=== PATIENT | male | born 1930 | race Caucasian/White ===

== ENCOUNTER 2017-11-25 15:10 | Inpatient (IN) | payer OTHER ==
[~2017-11-25] VITALS: Ht 167.6 cm; Wt 42.2 kg
--- NOTE | 2017-11-25 15:28 | RAD ---
CT head without intravenous contrast History: Code stroke. Right facial through. Right-sided weakness. Slurred speech. Comparison: None. Technique: Axial images are obtained of the head from the skull base through the vertex without IV contrast. Exposure: One or more of the following individualized dose reduction techniques were utilized for this examination: 1. Automated exposure control 2. Adjustment of the mA and/or kV according to patient size 3. Use of iterative reconstruction technique Findings: There is motion artifact at a few levels which could obscure subtle abnormalities. The ventricles are appropriate in size, shape, and location for the patient's age. No obvious intracranial mass, mass-effect, midline shift, hemorrhage or obvious acute infarction is identified. Basilar cisterns are patent. Mild-moderate nonspecific white matter low-attenuation seen, probably from chronic microvascular ischemic disease. Bone windows demonstrate no acute calvarial abnormality. The visualized paranasal sinuses appear clear. Bilateral cerumen is seen. Impression: 1. Mildly limited by motion. No acute intracranial process. Please note that CT can be relatively insensitive to acute ischemic infarction for up to 24 hours after symptom onset. 2. Mild nonspecific white matter changes, probably from chronic microvascular ischemic disease. 3. Results were telephoned to referring physician, Dr. Cruz, at 1524 hours. Electronically signed by: Derek Espinoza MD (11/25/2017 3:24 PM) [place] [id number]
--- NOTE | 2017-11-25 15:31 | EKG ---
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
[2017-11-25 15:37] LABS: BASO # 0.1 x10^3/uL (0.0-0.2); BASO % 1 % (0-3); EOS # 0.1 x10^3/uL (0.0-0.7); EOS % 3 % (0-3); HEMATOCRIT 31.8 % (39.0-53.0); HEMOGLOBIN 10.3 g/dL (13.0-17.5); LYMPH # 0.8 x10^3/uL (1.0-4.8); LYMPH % 17 % (24-48); MEAN CORPUSCULAR HEMOGLOBIN 28 pg (25-35); MEAN CORPUSCULAR HGB CONC 32 g/dL (31-37); MEAN CORPUSCULAR VOLUME 85 fL (79-100); MONO # 0.3 x10^3/uL (0.0-1.1); MONO % 7 % (0-9); NEUT # 3.4 x10^3uL (1.8-7.7); NEUT % 72 % (31-73); PLATELET COUNT 139 x10^3/uL (140-400); RED BLOOD COUNT 3.73 x10^6/uL (4.30-5.70); RED CELL DISTRIBUTION WIDTH 16.8 % (11.5-14.5); WHITE BLOOD COUNT 4.8 x10^3/uL (4.0-11.0)
[2017-11-25 15:47] LABS: CALCIUM 9.1 mg/dL (8.5-10.1); CREATININE 1.1 mg/dL (0.7-1.3); GFR 63.6; POTASSIUM 4.2 mmol/L (3.5-5.1)
[2017-11-25 15:49] LABS: PROTHROMBIN TIME PATIENT 14.1 SEC (11.7-14.0)
--- NOTE | 2017-11-25 15:50 | RAD ---
EXAM: CHEST 1 VIEW History: Facial weakness, confusion COMPARISON: None available. TECHNIQUE: Single portable radiograph of the chest FINDINGS: The cardiac silhouette is unremarkable. Left-sided cardiac pacer is identified. There is mild prominent appearing bilateral interstitial lung markings. Probable small 5 mm nodule identified in the right lower lobe of the lung. IMPRESSION: 1. Mild prominent appearing bilateral interstitial lung markings likely mild congestive changes or chronic interstitial changes. 2. Probable 5 mm nodule identified in the right lower lobe of the lung. Electronically signed by: Samson Olsen MD (11/25/2017 3:46 PM) [id number]
[2017-11-25 15:53] LABS: ALBUMIN 3.5 g/dL (3.4-5.0); ALBUMIN/GLOBULIN RATIO 1.2 (1.0-1.7); TOTAL BILIRUBIN 0.3 mg/dL (0.2-1.0); TOTAL PROTEIN 6.4 g/dL (6.4-8.2)
--- NOTE | 2017-11-25 16:11 | PHYS DOC ---
Past Medical History Past Medical History: Arrhythmia Past Surgical History: Pacemaker Additional Information: Chewing tobacco Adult General Chief Complaint Chief Complaint: NEURO SYMPTOMS/DEFICITS HPI HPI Patient is a 87 year old male who brought in by EMS because of code stroke. According to patient's son the patient woke up at 9:30 this morning and acting like his usual. At 11 AM he was confused and had slurred speech and not using his right upper and lower extremity well. Patient's son put him to sleep and when he woke up at 1330 he still had the same symptoms and his son called 911 around 1500. Patient is hard of hearing and confused and unable to give his name and follows the commands but unable to give history. Patient's son states he has history of progressive dementia but usually is alert and oriented at least 2 without any focal weakness. Review of Systems Review of Systems Unable to obtain because of hard of hearing and confusion Current Medications Current Medications Allergies Allergies Physical Exam Physical Exam Constitutional: Well nourished, mild distress, non-toxic appearance. [] HENT: Normocephalic, atraumatic Eyes: PERRLA, EOMI, conjunctiva normal, no discharge. [] Neck: Normal range of motion, no tenderness, supple, no stridor. [] Cardiovascular: Irregularly irregular rhythm without tachycardia, no murmur [] Lungs & Thorax: Bilateral breath sounds clear to auscultation [] Abdomen: Bowel sounds normal, soft, no tenderness, no masses, no pulsatile masses. [] Skin: Warm, dry, no erythema, no rash. [] Back: No tenderness, no CVA tenderness. [] Extremities: No tenderness, no cyanosis, no clubbing, ROM intact, no edema. [] Neurologic: Alert and oriented X 1, moves all extremities, denies sensory loss, facial droop and slurred speech with NIHS of 8 Psychologic: Unable to evaluate Current Patient Data Vital Signs Vital Signs Date Time Temp Pulse Resp B/P (MAP) Pulse Ox O2 Delivery O2 Flow Rate FiO2 11/25/17 15:15 64 14 94 11/25/17 15:10 98.9 172/86 (114) Room Air 98.9 Lab Values Laboratory Tests Test 11/25/17 15:18 11/25/17 15:28 Glucose (Fingerstick) 86 mg/dL (70-99) White Blood Count 4.8 x10^3/uL (4.0-11.0) Red Blood Count 3.73 x10^6/uL (4.30-5.70) L Hemoglobin 10.3 g/dL (13.0-17.5) L Hematocrit 31.8 % (39.0-53.0) L Mean Corpuscular Volume 85 fL (79-100) Mean Corpuscular Hemoglobin 28 pg (25-35) Mean Corpuscular Hemoglobin Concent 32 g/dL (31-37) Red Cell Distribution Width 16.8 % (11.5-14.5) H Platelet Count 139 x10^3/uL (140-400) L Neutrophils (%) (Auto) 72 % (31-73) Lymphocytes (%) (Auto) 17 % (24-48) L Monocytes (%) (Auto) 7 % (0-9) Eosinophils (%) (Auto) 3 % (0-3) Basophils (%) (Auto) 1 % (0-3) Neutrophils # (Auto) 3.4 x10^3uL (1.8-7.7) Lymphocytes # (Auto) 0.8 x10^3/uL (1.0-4.8) L Monocytes # (Auto) 0.3 x10^3/uL (0.0-1.1) Eosinophils # (Auto) 0.1 x10^3/uL (0.0-0.7) Basophils # (Auto) 0.1 x10^3/uL (0.0-0.2) Prothrombin Time 14.1 SEC (11.7-14.0) H Prothrombin Time INR 1.1 (0.8-1.1) PTT 29 SEC (24-38) Sodium Level 144 mmol/L (136-145) Potassium Level 4.2 mmol/L (3.5-5.1) Chloride Level 106 mmol/L (98-107) Carbon Dioxide Level 32 mmol/L (21-32) Anion Gap 6 (6-14) Blood Urea Nitrogen 23 mg/dL (8-26) Creatinine 1.1 mg/dL (0.7-1.3) Estimated GFR (Cockcroft-Gault) 63.6 BUN/Creatinine Ratio 21 (6-20) H Glucose Level 90 mg/dL (70-99) Lactic Acid Level 1.2 mmol/L (0.4-2.0) Calcium Level 9.1 mg/dL (8.5-10.1) Total Bilirubin 0.3 mg/dL (0.2-1.0) Aspartate Amino Transferase (AST) 32 U/L (15-37) Alanine Aminotransferase (ALT) 23 U/L (16-63) Alkaline Phosphatase 69 U/L (46-116) Troponin I Quantitative 0.019 ng/mL (0.000-0.055) Total Protein 6.4 g/dL (6.4-8.2) Albumin 3.5 g/dL (3.4-5.0) Albumin/Globulin Ratio 1.2 (1.0-1.7) Laboratory Tests 11/25/17 15:28 Laboratory Tests 11/25/17 15:28 EKG EKG EKG interpreted by me. EKG at 1520 showed afebrile at rate of 73, no acute ST and T-wave abnormalities[] Radiology/Procedures Radiology/Procedures [][address] [id number] IMAGING REPORT Signed PATIENT: SOPHY SANCHEZ ACCOUNT: [id number] : 1930 LOCATION: ER AGE: 87 SEX: M EXAM STATUS: PRE ER ORD. PHYSICIAN: GELY GOODRICH MD REASON: facial weakness, confused PROCEDURE: CHEST AP ONLY EXAM: CHEST 1 VIEW History: Facial weakness, confusion COMPARISON: None available. TECHNIQUE: Single portable radiograph of the chest FINDINGS: The cardiac silhouette is unremarkable. Left-sided cardiac pacer is identified. There is mild prominent appearing bilateral interstitial lung markings. Probable small 5 mm nodule identified in the right lower lobe of the lung. IMPRESSION: 1. Mild prominent appearing bilateral interstitial lung markings likely mild congestive changes or chronic interstitial changes. 2. Probable 5 mm nodule identified in the right lower lobe of the lung. Electronically signed by: Samson Olsen MD (11/25/2017 3:46 PM) [id number] DICTATED and SIGNED BY: SAMSON OLSEN MD DATE: 11/25/[address] [id number] IMAGING REPORT Signed PATIENT: SOPHY SANCHEZ ACCOUNT: [id number] : 1930 LOCATION: ER AGE: 87 SEX: M EXAM STATUS: PRE ER ORD. PHYSICIAN: GELY GOODRICH MD REASON: code stroke, RIGHT SIDE FACIAL DROOP AND WEAKNESS PROCEDURE: CT CODE STROKE HEAD WO CT head without intravenous contrast History: Code stroke. Right facial through. Right-sided weakness. Slurred speech. Comparison: None. Technique: Axial images are obtained of the head from the skull base through the vertex without IV contrast. Exposure: One or more of the following individualized dose reduction techniques were utilized for this examination: 1. Automated exposure control 2. Adjustment of the mA and/or kV according to patient size 3. Use of iterative reconstruction technique Findings: There is motion artifact at a few levels which could obscure subtle abnormalities. The ventricles are appropriate in size, shape, and location for the patient's age. No obvious intracranial mass, mass-effect, midline shift, hemorrhage or obvious acute infarction is identified. Basilar cisterns are patent. Mild-moderate nonspecific white matter low-attenuation seen, probably from chronic microvascular ischemic disease. Bone windows demonstrate no acute calvarial abnormality. The visualized paranasal sinuses appear clear. Bilateral cerumen is seen. Impression: 1. Mildly limited by motion. No acute intracranial process. Please note that CT can be relatively insensitive to acute ischemic infarction for up to 24 hours after symptom onset. 2. Mild nonspecific white matter changes, probably from chronic microvascular ischemic disease. 3. Results were telephoned to referring physician, Dr. Goodrich, at 1524 hours. Electronically signed by: Derek Tavarez MD (11/25/2017 3:24 PM) [facility] DICTATED and SIGNED BY: DEREK TAVAREZ MD DATE: 11/25/17 9929 Course & Med Decision Making Course & Med Decision Making Pertinent Labs and Imaging studies reviewed. (See chart for details) Evaluation of patient in ER showed 87-year-old male patient brought in as a code stroke with starting symptom more than 4 hours prior to ER. Patient did not have extremity weakness but had marked facial droop and intermittent slurred speech and confusion and had NIHS of 8. Patient was not a candidate for TPA because of time of starting symptom was more than [address] Ramos on -call neurologist was consulted at 1548 and recommended to obtain CTA head and neck and agreed with plan of not giving TPA. Dr Uribe accepted admission at 1604 and presented to ER and evaluated the patient. Dragon Disclaimer Dragon Disclaimer This electronic medical record was generated, in whole or in part, using a voice recognition dictation system. Departure Departure Impression: Primary Impression: Acute focal neurological deficit Additional Impressions: Anemia Atrial fibrillation Dementia Disposition: 09 ADMITTED INPATIENT (At 1605) Admitting Physician: Xie. Wiggins Condition: GUARDED Referrals: NO PCP (PCP) Critical Care Time Critical care time was [60] minutes exclusive of procedures. Problem Qualifiers GELY GOODRICH MD Nov 25, 2017 16:11
[2017-11-25 16:13] LABS: BILIRUBIN,URINE NEGATIVE (NEG); CLARITY,URINE CLEAR; COLOR,URINE YELLOW; NITRITE,URINE NEGATIVE (NEG); PROTEIN,URINE NEGATIVE (NEG-TRACE); UROBILINOGEN,URINE 0.2 mg/dL (0.2 mg/dL)
[2017-11-25] MEDS ORDERED: IOHEXOL 300 MG/ML 100ML VIAL. IV ONE (16:15)
[2017-11-25] MEDS ORDERED: CONTRAST GIVEN. MC PRN (16:15)
[2017-11-25 16:29] LABS: BACTERIA,URINE 0 /HPF (0-FEW); HYALINE CASTS, URINE MODERATE /HPF; RBC,URINE 0 /HPF (0-2)
[2017-11-25] MEDS ORDERED: DOCUSATE SODIUM 100 MG CAPSULE. PO PRN (16:45)
[2017-11-25] MEDS ORDERED: ACETAMINOPHEN 325 MG TABLET. PO PRN (16:45)
[2017-11-25] MEDS ORDERED: traMADol 50 MG TABLET PO PRN (16:45)
[2017-11-25] MEDS ORDERED: hydrALAZINE 20 MG/ML VIAL. IVP PRN (16:45)
[2017-11-25] MEDS ORDERED: ONDANSETRON PF 4 MG/2 ML VIAL. IV PRN (16:45)
--- NOTE | 2017-11-25 16:46 | PDOC1 ---
History and Physical Date of Admission Date of Admission 11/25/17 Identification/Chief Complaint Chief Complaint weakness, slurry speech Source Source: Caregiver, Chart review History of Present Illness History of Present Illness 87yo M, has afib but not on any meds , PPM, was sent from home with son JASS, for slurry speech and weakness. As per son, pt became very weak this am about 11am, went back to bed, then woke up with slurry speech and possible rt side weakness. Pt is deaf usually, but talks ok and walks independently. Pt seen in ER, CALm, communicate with writing with son, but not really able to follow any commands as i asked him, including smile , squeeze my hands. denies fever, chills, sob , chest pain as per son. son said his slurry speech still bad, but rt hand weakness is better. pt not even on ASA not sure why, as per son he had gib from diverticulitis. head CT neg. Past Medical History Past Medical History ppm, afib Past Surgical History Past Surgical History: No pertinent history Family History Family History: Hypertension Social History Smoke: No ALCOHOL: none Drugs: None Current Problem List Problem List Problems Medical Problems: (1) Acute focal neurological deficit Status: Acute Current Medications Current Medications Current Medications Medications (Trade) Dose Ordered Sig/All Start Time Stop Time Status Last Admin Dose Admin Info (CONTRAST GIVEN -- Rx MONITORING) 1 each PRN DAILY PRN 11/25/17 16:15 11/27/17 16:14 Iohexol (Omnipaque 300 Mg/ml) 75 ml 1X ONCE 11/25/17 16:15 11/25/17 16:16 DC Allergies Allergies Allergies Coded Allergies Type Severity Reaction Last Updated Verified No Known Drug Allergies 11/25/17 No ROS Review of System CONSTITUTIONAL: No fever or chills EYES: No recent changes SKIN: No rash or itching CARDIOVASCULAR: No chest pain, syncope, palpitations, or edema RESPIRATORY: No SOB or cough GASTROINTESTINAL: No nausea, vomiting or abdominal pain NEUROLOGICAL: No headaches or weakness ENDOCRINE: No cold or heat intolerance GENITOURINARY: No urgency or frequency of urination MUSCULOSKELETAL: No back pain or joint pain LYMPHATICS: No enlarged lymph nodes PSYCHIATRIC: No anxiety or depression Physical Exam Physical Exam GEN.: No apparent distress. Alert and oriented x0, slurry speech, not follow commands, able to use rt hand to hold the paper board. HEENT: Head is normocephalic, atraumatic NECK: Supple. LUNGS: Clear to auscultation. HEART: RRR, S1, S2 present. Peripheral pulses intact ABDOMEN: Soft, nontender. Positive bowel sounds. EXTREMITIES: Without any cyanosis. NEUROLOGIC: Normal speech, normal tone PSYCHIATRIC: Normal affect, normal mood. SKIN: No ulcerations Vitals Vitals Vital Signs Date Time Temp Pulse Resp B/P (MAP) Pulse Ox O2 Delivery O2 Flow Rate FiO2 11/25/17 15:10 98.9 62 14 172/86 (114) 99 Room Air 98.9 Labs Labs Laboratory Tests Test 11/25/17 15:18 11/25/17 15:28 Glucose (Fingerstick) 86 mg/dL (70-99) White Blood Count 4.8 x10^3/uL (4.0-11.0) Red Blood Count 3.73 x10^6/uL (4.30-5.70) Hemoglobin 10.3 g/dL (13.0-17.5) Hematocrit 31.8 % (39.0-53.0) Mean Corpuscular Volume 85 fL (79-100) Mean Corpuscular Hemoglobin 28 pg (25-35) Mean Corpuscular Hemoglobin Concent 32 g/dL (31-37) Red Cell Distribution Width 16.8 % (11.5-14.5) Platelet Count 139 x10^3/uL (140-400) Neutrophils (%) (Auto) 72 % (31-73) Lymphocytes (%) (Auto) 17 % (24-48) Monocytes (%) (Auto) 7 % (0-9) Eosinophils (%) (Auto) 3 % (0-3) Basophils (%) (Auto) 1 % (0-3) Neutrophils # (Auto) 3.4 x10^3uL (1.8-7.7) Lymphocytes # (Auto) 0.8 x10^3/uL (1.0-4.8) Monocytes # (Auto) 0.3 x10^3/uL (0.0-1.1) Eosinophils # (Auto) 0.1 x10^3/uL (0.0-0.7) Basophils # (Auto) 0.1 x10^3/uL (0.0-0.2) Prothrombin Time 14.1 SEC (11.7-14.0) Prothromb Time International Ratio 1.1 (0.8-1.1) Activated Partial Thromboplast Time 29 SEC (24-38) Sodium Level 144 mmol/L (136-145) Potassium Level 4.2 mmol/L (3.5-5.1) Chloride Level 106 mmol/L (98-107) Carbon Dioxide Level 32 mmol/L (21-32) Anion Gap 6 (6-14) Blood Urea Nitrogen 23 mg/dL (8-26) Creatinine 1.1 mg/dL (0.7-1.3) Estimated GFR (Cockcroft-Gault) 63.6 BUN/Creatinine Ratio 21 (6-20) Glucose Level 90 mg/dL (70-99) Lactic Acid Level 1.2 mmol/L (0.4-2.0) Calcium Level 9.1 mg/dL (8.5-10.1) Total Bilirubin 0.3 mg/dL (0.2-1.0) Aspartate Amino Transf (AST/SGOT) 32 U/L (15-37) Alanine Aminotransferase (ALT/SGPT) 23 U/L (16-63) Alkaline Phosphatase 69 U/L (46-116) Troponin I Quantitative 0.019 ng/mL (0.000-0.055) Total Protein 6.4 g/dL (6.4-8.2) Albumin 3.5 g/dL (3.4-5.0) Albumin/Globulin Ratio 1.2 (1.0-1.7) Laboratory Tests Test 11/25/17 15:18 11/25/17 15:28 Glucose (Fingerstick) 86 mg/dL (70-99) White Blood Count 4.8 x10^3/uL (4.0-11.0) Red Blood Count 3.73 x10^6/uL (4.30-5.70) Hemoglobin 10.3 g/dL (13.0-17.5) Hematocrit 31.8 % (39.0-53.0) Mean Corpuscular Volume 85 fL (79-100) Mean Corpuscular Hemoglobin 28 pg (25-35) Mean Corpuscular Hemoglobin Concent 32 g/dL (31-37) Red Cell Distribution Width 16.8 % (11.5-14.5) Platelet Count 139 x10^3/uL (140-400) Neutrophils (%) (Auto) 72 % (31-73) Lymphocytes (%) (Auto) 17 % (24-48) Monocytes (%) (Auto) 7 % (0-9) Eosinophils (%) (Auto) 3 % (0-3) Basophils (%) (Auto) 1 % (0-3) Neutrophils # (Auto) 3.4 x10^3uL (1.8-7.7) Lymphocytes # (Auto) 0.8 x10^3/uL (1.0-4.8) Monocytes # (Auto) 0.3 x10^3/uL (0.0-1.1) Eosinophils # (Auto) 0.1 x10^3/uL (0.0-0.7) Basophils # (Auto) 0.1 x10^3/uL (0.0-0.2) Prothrombin Time 14.1 SEC (11.7-14.0) Prothromb Time International Ratio 1.1 (0.8-1.1) Activated Partial Thromboplast Time 29 SEC (24-38) Sodium Level 144 mmol/L (136-145) Potassium Level 4.2 mmol/L (3.5-5.1) Chloride Level 106 mmol/L (98-107) Carbon Dioxide Level 32 mmol/L (21-32) Anion Gap 6 (6-14) Blood Urea Nitrogen 23 mg/dL (8-26) Creatinine 1.1 mg/dL (0.7-1.3) Estimated GFR (Cockcroft-Gault) 63.6 BUN/Creatinine Ratio 21 (6-20) Glucose Level 90 mg/dL (70-99) Lactic Acid Level 1.2 mmol/L (0.4-2.0) Calcium Level 9.1 mg/dL (8.5-10.1) Total Bilirubin 0.3 mg/dL (0.2-1.0) Aspartate Amino Transf (AST/SGOT) 32 U/L (15-37) Alanine Aminotransferase (ALT/SGPT) 23 U/L (16-63) Alkaline Phosphatase 69 U/L (46-116) Troponin I Quantitative 0.019 ng/mL (0.000-0.055) Total Protein 6.4 g/dL (6.4-8.2) Albumin 3.5 g/dL (3.4-5.0) Albumin/Globulin Ratio 1.2 (1.0-1.7) VTE Prophylaxis Ordered VTE Prophylaxis Devices: Yes VTE Pharmacological Prophylaxi: Yes Assessment/Plan Assessment/Plan slurry speech, rt side weakness, 2/2 stroke? baseline mild dementia bl hearing loss PPM with afib wo ac h/o diverticulitis with gib normacytic anemia thrombocytopenia plan: fu with neuro CT head neg, cta pending check brain MRI, ECHO, Carotid US CHECK tsh, lipid panel, vitb12, vitD swallow eval npo, ivf dvt, gi ppx ASA [place] neurocheck q4h PTOT talked to son about possible SW, REHAB, PEG if not able to eat DAWSON LONG MD Nov 25, 2017 16:46
--- NOTE | 2017-11-25 16:55 | RAD ---
PQRS Compliance Statement: One or more of the following individualized dose reduction techniques were utilized for this examination: 1. Automated exposure control 2. Adjustment of the mA and/or kV according to patient size 3. Use of iterative reconstruction technique CTA head and neck with contrast 11/25/2017 4:20 PM INDICATION: Code stroke. Slurred speech and facial droop. Focal weakness. COMPARISON: CT head 11/25/2017 TECHNIQUE: Multiple axial CT images of the head were obtained without intravenous contrast. Multiple axial CT images of the head and neck were obtained after the intravenous administration of 75 mL Omnipaque 300. Coronal and sagittal reformats are provided. Maximum intensity projection images of the intracranial and cervical vasculature are provided. FINDINGS: Nonvascular findings: Supervisor [employer] Removal image reveals no significant abnormality. Scalp and calvaria are intact. The ventricles, sulci and basal cisterns are normal in appearance. There is normal arceo-white matter differentiation. Few scattered foci of hypoattenuation in the periventricular and subcortical white matter are suggestive of chronic small vessel ischemic changes. There is no hydrocephalus. There is no acute intracranial hemorrhage. There is no mass, mass effect or midline shift. Posterior fossa is normal in appearance. Sella and suprasellar cistern appear normal. Orbits are normal in appearance with exception of bilateral lens replacement. Paranasal sinuses are well aerated. Mastoid air cells are well aerated. There are no suspicious enhancing intracranial lesions. Nasopharynx, oropharynx and hypopharynx appear normal. Glottic structures appear intact. Laryngeal cartilages are intact. Thyroid gland is normal in appearance. There are no pathologically enlarged cervical lymph nodes. Parotid glands and submandibular glands appear intact. Auxiliary Power Equipment Operator space and parapharyngeal spaces appear intact. There is moderate centrilobular pulmonary emphysema. There is a 3 mm solid noncalcified pulmonary nodule in the left upper lobe. Subpleural nodular densities are identified along the right lung apex which may represent scarring. For example, there is a 5 mm spiculated subpleural nodule (series 3, image 75). There is mild cervical spondylosis, most prominent at C4-C5 with minimal retrolisthesis of C4 on C5. Vascular findings: Visualized portions of the pulmonary arteries are patent. Ascending thoracic aorta is normal in caliber. Origin of the brachiocephalic vessels appear widely patent. Normal three-vessel aortic arch is visualized. Origin of the right common carotid artery is normal. Right common carotid artery is normal in course and caliber. There is minor atherosclerotic calcination of the right carotid bifurcation without significant stenosis of the proximal right internal carotid artery or external carotid artery. Left common carotid artery is normal in course and caliber. 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 Origin of the external carotid artery is widely patent. Right vertebral artery is normal in course and caliber with moderate stenosis at the origin. Left vertebral artery is normal in course and caliber an patent at the origin. Intracranial segments of internal carotid arteries are normal in course and caliber with exception of mild irregularity involving the cavernous segments, likely secondary to atheromatous plaque. Middle cerebral arteries are normal in course and caliber with patent sylvian branches. A1 segments are present and normal in appearance. Anterior cerebral arteries are normal in course and caliber. Left vertebral artery is dominant. Right vertebral artery terminates in the right posterior inferior cerebellar artery territory. Vertebral basilar junction is normal. Basilar artery is normal in course and caliber. Anterior inferior cerebellar arteries and superior cerebellar arteries are normal. P1 segments of the posterior cerebral arteries are patent. Posterior cerebral arteries are normal in course and caliber. 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 Opacified portions of the deep venous sinuses appear patent including the superior sagittal sinus. IMPRESSION: 1. No acute intracranial hemorrhage. 2. 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 There is no significant right carotid stenosis. There is moderate stenosis of the origin of the right vertebral artery. Right vertebral artery terminates in the posterior inferior cerebellar artery distribution. 3. 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 4. PQRS statement: Carotid stenosis calculations are performed utilizing NASCET Criteria. 5. 3 mm solid noncalcified pulmonary nodule in the left upper lobe. 5 mm solid noncalcified spiculated nodule in the right upper lobe along the right lung apex. A six-month follow-up CT chest may be of benefit. Electronically signed by: Rachna Avendaño MD (11/25/2017 4:51 PM) [id number]
[2017-11-25] MEDS: ENOXAPARIN 40 MG/0.4 ML SYRINGE. SQ SCH (17:00)
[2017-11-25 17:15] VITALS: BP 199/91
[2017-11-25 18:16] VITALS: BP 179/93
[2017-11-25] MEDS: IV NORMAL SALINE 1000ML BAG 1,000 ML IV SCH (19:00)
[2017-11-25] MEDS: MORPHINE SULFATE 2 MG/ML DISP.SYRIN. IV PRN (19:14)
[2017-11-25 20:00] VITALS: BP 173/97
[2017-11-25] MEDS ORDERED: HALOPERIDOL LACTATE 5 MG/ML VIAL. IVP PRN (21:30)
[2017-11-26] VITALS (7 sets, daily range): BP systolic 100–140; BP diastolic 49–71
[2017-11-26 05:15] LABS: BASO % 1 % (0-3); EOS % 0 % (0-3); HEMATOCRIT 34.3 % (39.0-53.0); HEMOGLOBIN 11.1 g/dL (13.0-17.5); LYMPH # 0.6 x10^3/uL (1.0-4.8); LYMPH % 7 % (24-48); MEAN CORPUSCULAR HEMOGLOBIN 28 pg (25-35); MEAN CORPUSCULAR HGB CONC 32 g/dL (31-37); MEAN CORPUSCULAR VOLUME 85 fL (79-100); MONO # 0.7 x10^3/uL (0.0-1.1); MONO % 8 % (0-9); NEUT # 7.5 x10^3uL (1.8-7.7); NEUT % 84 % (31-73); PLATELET COUNT 137 x10^3/uL (140-400); RED BLOOD COUNT 4.03 x10^6/uL (4.30-5.70); RED CELL DISTRIBUTION WIDTH 16.3 % (11.5-14.5); WHITE BLOOD COUNT 8.9 x10^3/uL (4.0-11.0)
[2017-11-26 05:18] LABS: CREATININE 1.1 mg/dL (0.7-1.3); GFR 63.6; POTASSIUM 3.7 mmol/L (3.5-5.1)
[2017-11-26 05:27] LABS: CHOLESTEROL/HDL RATIO 2.7
[2017-11-26] MEDS: IV NORMAL SALINE 1000ML BAG 1,000 ML IV SCH (05:56)
[2017-11-26] MEDS: ASPIRIN 300 MG SUPP.RECT PR SCH ×2 (09:44→09:49)
[2017-11-26 10:28] LABS: FREE T4 1.36 ng/dL (0.76-1.46)
--- NOTE | 2017-11-26 13:17 | PDOC ---
PROGRESS NOTES Chief Complaint Chief Complaint slurry speech, rt side weakness, 2/2 stroke? baseline mild dementia bl hearing loss PPM with afib wo ac h/o diverticulitis with gib normacytic anemia thrombocytopenia AMS, metabolic encephalopathy with ativan in hosp bl lung 3-5mm nodule with remote smoking history small brain aneurysm plan: fu with neuro CT head neg, cta check brain MRI cannot be done since PPM, repeat head CT, ECHO pending CHECK tsh, lipid panel, vitb12, vitD swallow eval when more awake npo, ivf change to PPM dvt, gi ppx ASA NV, zocor if can swallow neurocheck q4h PTOT dc ativan,cont haldol prn, sitter as needed, try to avoid sedative meds if not too agitated. talked to son about possible SW, REHAB, PEG if not able to eat neurosx consult, likely no intervention told son to fu with PCP for the small lung nodules son will talk to family regarding code status. History of Present Illness History of Present Illness ROS: no fever, chills, sob or chest pain son said pt able to move all ext , but agitated overnight, got ativan 0.5x2, now unresponsive i told him possible aspiration if not wake up soon or able to swallow Vitals Vitals Vital Signs Date Time Temp Pulse Resp B/P (MAP) Pulse Ox O2 Delivery O2 Flow Rate FiO2 11/26/17 12:30 99.0 68 20 100/52 (68) 93 Room Air 99.0 11/25/17 20:00 98.0 Physical Exam Physical Exam unresponsive , post ativan x2 overnight Heart: Regular rate, Normal S1, Normal S2 Lungs: Clear Abdomen: Normal bowel sounds, Soft Extremities: No clubbing, No cyanosis Skin: No rashes Labs LABS Laboratory Tests Test 11/25/17 15:18 11/25/17 15:28 11/25/17 16:01 11/26/17 04:00 Glucose (Fingerstick) 86 mg/dL (70-99) White Blood Count 4.8 x10^3/uL (4.0-11.0) 8.9 x10^3/uL (4.0-11.0) Red Blood Count 3.73 x10^6/uL (4.30-5.70) 4.03 x10^6/uL (4.30-5.70) Hemoglobin 10.3 g/dL (13.0-17.5) 11.1 g/dL (13.0-17.5) Hematocrit 31.8 % (39.0-53.0) 34.3 % (39.0-53.0) Mean Corpuscular Volume 85 fL (79-100) 85 fL (79-100) Mean Corpuscular Hemoglobin 28 pg (25-35) 28 pg (25-35) Mean Corpuscular Hemoglobin Concent 32 g/dL (31-37) 32 g/dL (31-37) Red Cell Distribution Width 16.8 % (11.5-14.5) 16.3 % (11.5-14.5) Platelet Count 139 x10^3/uL (140-400) 137 x10^3/uL (140-400) Neutrophils (%) (Auto) 72 % (31-73) 84 % (31-73) Lymphocytes (%) (Auto) 17 % (24-48) 7 % (24-48) Monocytes (%) (Auto) 7 % (0-9) 8 % (0-9) Eosinophils (%) (Auto) 3 % (0-3) 0 % (0-3) Basophils (%) (Auto) 1 % (0-3) 1 % (0-3) Neutrophils # (Auto) 3.4 x10^3uL (1.8-7.7) 7.5 x10^3uL (1.8-7.7) Lymphocytes # (Auto) 0.8 x10^3/uL (1.0-4.8) 0.6 x10^3/uL (1.0-4.8) Monocytes # (Auto) 0.3 x10^3/uL (0.0-1.1) 0.7 x10^3/uL (0.0-1.1) Eosinophils # (Auto) 0.1 x10^3/uL (0.0-0.7) 0.0 x10^3/uL (0.0-0.7) Basophils # (Auto) 0.1 x10^3/uL (0.0-0.2) 0.0 x10^3/uL (0.0-0.2) Prothrombin Time 14.1 SEC (11.7-14.0) Prothromb Time International Ratio 1.1 (0.8-1.1) Activated Partial Thromboplast Time 29 SEC (24-38) Sodium Level 144 mmol/L (136-145) 144 mmol/L (136-145) Potassium Level 4.2 mmol/L (3.5-5.1) 3.7 mmol/L (3.5-5.1) Chloride Level 106 mmol/L (98-107) 106 mmol/L (98-107) Carbon Dioxide Level 32 mmol/L (21-32) 30 mmol/L (21-32) Anion Gap 6 (6-14) 8 (6-14) Blood Urea Nitrogen 23 mg/dL (8-26) 20 mg/dL (8-26) Creatinine 1.1 mg/dL (0.7-1.3) 1.1 mg/dL (0.7-1.3) Estimated GFR (Cockcroft-Gault) 63.6 63.6 BUN/Creatinine Ratio 21 (6-20) Glucose Level 90 mg/dL (70-99) 91 mg/dL (70-99) Lactic Acid Level 1.2 mmol/L (0.4-2.0) Calcium Level 9.1 mg/dL (8.5-10.1) 9.0 mg/dL (8.5-10.1) Total Bilirubin 0.3 mg/dL (0.2-1.0) Aspartate Amino Transf (AST/SGOT) 32 U/L (15-37) Alanine Aminotransferase (ALT/SGPT) 23 U/L (16-63) Alkaline Phosphatase 69 U/L (46-116) Troponin I Quantitative 0.019 ng/mL (0.000-0.055) Total Protein 6.4 g/dL (6.4-8.2) Albumin 3.5 g/dL (3.4-5.0) Albumin/Globulin Ratio 1.2 (1.0-1.7) Urine Collection Type Unknown Urine Color Yellow Urine Clarity Clear Urine pH 7.0 Urine Specific Christine 1.010 Urine Protein Negative mg/dL (NEG-TRACE) Urine Glucose (UA) Negative mg/dL (NEG) Urine Ketones (Stick) Negative mg/dL (NEG) Urine Blood Negative (NEG) Urine Nitrite Negative (NEG) Urine Bilirubin Negative (NEG) Urine Urobilinogen Dipstick 0.2 mg/dL (0.2 mg/dL) Urine Leukocyte Esterase Trace (NEG) Urine RBC 0 /HPF (0-2) Urine WBC 1-4 /HPF (0-4) Urine Bacteria 0 /HPF (0-FEW) Urine Hyaline Casts Moderate /HPF Urine Mucus Slight /LPF Triglycerides Level 54 mg/dL (0-150) Cholesterol Level 158 mg/dL (0-200) LDL Cholesterol, Calculated 88 mg/dL (0-100) VLDL Cholesterol, Calculated 11 mg/dL (0-40) Non-HDL Cholesterol Calculated 99 mg/dL (0-129) HDL Cholesterol 59 mg/dL (40-60) Cholesterol/HDL Ratio 2.7 Thyroid Stimulating Hormone (TSH) 6.212 uIU/mL (0.358-3.74) Free Thyroxine 1.36 ng/dL (0.76-1.46) Free Triiodothyronine (T3) pg/mL 2.78 pg/mL (2.18-3.98) Assessment and Plan Assessmemt and Plan Problems Medical Problems: (1) Acute focal neurological deficit Status: Acute (2) Anemia Status: Acute (3) Atrial fibrillation Status: Acute (4) Dementia Status: Acute Comment Review of Relevant I have reviewed the following items kendell (where applicable) has been applied. Labs Laboratory Tests Test 11/25/17 15:18 11/25/17 15:28 11/25/17 16:01 11/26/17 04:00 Glucose (Fingerstick) 86 mg/dL (70-99) White Blood Count 4.8 x10^3/uL (4.0-11.0) 8.9 x10^3/uL (4.0-11.0) Red Blood Count 3.73 x10^6/uL (4.30-5.70) 4.03 x10^6/uL (4.30-5.70) Hemoglobin 10.3 g/dL (13.0-17.5) 11.1 g/dL (13.0-17.5) Hematocrit 31.8 % (39.0-53.0) 34.3 % (39.0-53.0) Mean Corpuscular Volume 85 fL (79-100) 85 fL (79-100) Mean Corpuscular Hemoglobin 28 pg (25-35) 28 pg (25-35) Mean Corpuscular Hemoglobin Concent 32 g/dL (31-37) 32 g/dL (31-37) Red Cell Distribution Width 16.8 % (11.5-14.5) 16.3 % (11.5-14.5) Platelet Count 139 x10^3/uL (140-400) 137 x10^3/uL (140-400) Neutrophils (%) (Auto) 72 % (31-73) 84 % (31-73) Lymphocytes (%) (Auto) 17 % (24-48) 7 % (24-48) Monocytes (%) (Auto) 7 % (0-9) 8 % (0-9) Eosinophils (%) (Auto) 3 % (0-3) 0 % (0-3) Basophils (%) (Auto) 1 % (0-3) 1 % (0-3) Neutrophils # (Auto) 3.4 x10^3uL (1.8-7.7) 7.5 x10^3uL (1.8-7.7) Lymphocytes # (Auto) 0.8 x10^3/uL (1.0-4.8) 0.6 x10^3/uL (1.0-4.8) Monocytes # (Auto) 0.3 x10^3/uL (0.0-1.1) 0.7 x10^3/uL (0.0-1.1) Eosinophils # (Auto) 0.1 x10^3/uL (0.0-0.7) 0.0 x10^3/uL (0.0-0.7) Basophils # (Auto) 0.1 x10^3/uL (0.0-0.2) 0.0 x10^3/uL (0.0-0.2) Prothrombin Time 14.1 SEC (11.7-14.0) Prothromb Time International Ratio 1.1 (0.8-1.1) Activated Partial Thromboplast Time 29 SEC (24-38) Sodium Level 144 mmol/L (136-145) 144 mmol/L (136-145) Potassium Level 4.2 mmol/L (3.5-5.1) 3.7 mmol/L (3.5-5.1) Chloride Level 106 mmol/L (98-107) 106 mmol/L (98-107) Carbon Dioxide Level 32 mmol/L (21-32) 30 mmol/L (21-32) Anion Gap 6 (6-14) 8 (6-14) Blood Urea Nitrogen 23 mg/dL (8-26) 20 mg/dL (8-26) Creatinine 1.1 mg/dL (0.7-1.3) 1.1 mg/dL (0.7-1.3) Estimated GFR (Cockcroft-Gault) 63.6 63.6 BUN/Creatinine Ratio 21 (6-20) Glucose Level 90 mg/dL (70-99) 91 mg/dL (70-99) Lactic Acid Level 1.2 mmol/L (0.4-2.0) Calcium Level 9.1 mg/dL (8.5-10.1) 9.0 mg/dL (8.5-10.1) Total Bilirubin 0.3 mg/dL (0.2-1.0) Aspartate Amino Transf (AST/SGOT) 32 U/L (15-37) Alanine Aminotransferase (ALT/SGPT) 23 U/L (16-63) Alkaline Phosphatase 69 U/L (46-116) Troponin I Quantitative 0.019 ng/mL (0.000-0.055) Total Protein 6.4 g/dL (6.4-8.2) Albumin 3.5 g/dL (3.4-5.0) Albumin/Globulin Ratio 1.2 (1.0-1.7) Urine Collection Type Unknown Urine Color Yellow Urine Clarity Clear Urine pH 7.0 Urine Specific Christine 1.010 Urine Protein Negative mg/dL (NEG-TRACE) Urine Glucose (UA) Negative mg/dL (NEG) Urine Ketones (Stick) Negative mg/dL (NEG) Urine Blood Negative (NEG) Urine Nitrite Negative (NEG) Urine Bilirubin Negative (NEG) Urine Urobilinogen Dipstick 0.2 mg/dL (0.2 mg/dL) Urine Leukocyte Esterase Trace (NEG) Urine RBC 0 /HPF (0-2) Urine WBC 1-4 /HPF (0-4) Urine Bacteria 0 /HPF (0-FEW) Urine Hyaline Casts Moderate /HPF Urine Mucus Slight /LPF Triglycerides Level 54 mg/dL (0-150) Cholesterol Level 158 mg/dL (0-200) LDL Cholesterol, Calculated 88 mg/dL (0-100) VLDL Cholesterol, Calculated 11 mg/dL (0-40) Non-HDL Cholesterol Calculated 99 mg/dL (0-129) HDL Cholesterol 59 mg/dL (40-60) Cholesterol/HDL Ratio 2.7 Thyroid Stimulating Hormone (TSH) 6.212 uIU/mL (0.358-3.74) Free Thyroxine 1.36 ng/dL (0.76-1.46) Free Triiodothyronine (T3) pg/mL 2.78 pg/mL (2.18-3.98) Laboratory Tests Test 11/25/17 15:18 11/25/17 15:28 11/25/17 16:01 11/26/17 04:00 Glucose (Fingerstick) 86 mg/dL (70-99) White Blood Count 4.8 x10^3/uL (4.0-11.0) 8.9 x10^3/uL (4.0-11.0) Red Blood Count 3.73 x10^6/uL (4.30-5.70) 4.03 x10^6/uL (4.30-5.70) Hemoglobin 10.3 g/dL (13.0-17.5) 11.1 g/dL (13.0-17.5) Hematocrit 31.8 % (39.0-53.0) 34.3 % (39.0-53.0) Mean Corpuscular Volume 85 fL (79-100) 85 fL (79-100) Mean Corpuscular Hemoglobin 28 pg (25-35) 28 pg (25-35) Mean Corpuscular Hemoglobin Concent 32 g/dL (31-37) 32 g/dL (31-37) Red Cell Distribution Width 16.8 % (11.5-14.5) 16.3 % (11.5-14.5) Platelet Count 139 x10^3/uL (140-400) 137 x10^3/uL (140-400) Neutrophils (%) (Auto) 72 % (31-73) 84 % (31-73) Lymphocytes (%) (Auto) 17 % (24-48) 7 % (24-48) Monocytes (%) (Auto) 7 % (0-9) 8 % (0-9) Eosinophils (%) (Auto) 3 % (0-3) 0 % (0-3) Basophils (%) (Auto) 1 % (0-3) 1 % (0-3) Neutrophils # (Auto) 3.4 x10^3uL (1.8-7.7) 7.5 x10^3uL (1.8-7.7) Lymphocytes # (Auto) 0.8 x10^3/uL (1.0-4.8) 0.6 x10^3/uL (1.0-4.8) Monocytes # (Auto) 0.3 x10^3/uL (0.0-1.1) 0.7 x10^3/uL (0.0-1.1) Eosinophils # (Auto) 0.1 x10^3/uL (0.0-0.7) 0.0 x10^3/uL (0.0-0.7) Basophils # (Auto) 0.1 x10^3/uL (0.0-0.2) 0.0 x10^3/uL (0.0-0.2) Prothrombin Time 14.1 SEC (11.7-14.0) Prothromb Time International Ratio 1.1 (0.8-1.1) Activated Partial Thromboplast Time 29 SEC (24-38) Sodium Level 144 mmol/L (136-145) 144 mmol/L (136-145) Potassium Level 4.2 mmol/L (3.5-5.1) 3.7 mmol/L (3.5-5.1) Chloride Level 106 mmol/L (98-107) 106 mmol/L (98-107) Carbon Dioxide Level 32 mmol/L (21-32) 30 mmol/L (21-32) Anion Gap 6 (6-14) 8 (6-14) Blood Urea Nitrogen 23 mg/dL (8-26) 20 mg/dL (8-26) Creatinine 1.1 mg/dL (0.7-1.3) 1.1 mg/dL (0.7-1.3) Estimated GFR (Cockcroft-Gault) 63.6 63.6 BUN/Creatinine Ratio 21 (6-20) Glucose Level 90 mg/dL (70-99) 91 mg/dL (70-99) Lactic Acid Level 1.2 mmol/L (0.4-2.0) Calcium Level 9.1 mg/dL (8.5-10.1) 9.0 mg/dL (8.5-10.1) Total Bilirubin 0.3 mg/dL (0.2-1.0) Aspartate Amino Transf (AST/SGOT) 32 U/L (15-37) Alanine Aminotransferase (ALT/SGPT) 23 U/L (16-63) Alkaline Phosphatase 69 U/L (46-116) Troponin I Quantitative 0.019 ng/mL (0.000-0.055) Total Protein 6.4 g/dL (6.4-8.2) Albumin 3.5 g/dL (3.4-5.0) Albumin/Globulin Ratio 1.2 (1.0-1.7) Urine Collection Type Unknown Urine Color Yellow Urine Clarity Clear Urine pH 7.0 Urine Specific Christine 1.010 Urine Protein Negative mg/dL (NEG-TRACE) Urine Glucose (UA) Negative mg/dL (NEG) Urine Ketones (Stick) Negative mg/dL (NEG) Urine Blood Negative (NEG) Urine Nitrite Negative (NEG) Urine Bilirubin Negative (NEG) Urine Urobilinogen Dipstick 0.2 mg/dL (0.2 mg/dL) Urine Leukocyte Esterase Trace (NEG) Urine RBC 0 /HPF (0-2) Urine WBC 1-4 /HPF (0-4) Urine Bacteria 0 /HPF (0-FEW) Urine Hyaline Casts Moderate /HPF Urine Mucus Slight /LPF Triglycerides Level 54 mg/dL (0-150) Cholesterol Level 158 mg/dL (0-200) LDL Cholesterol, Calculated 88 mg/dL (0-100) VLDL Cholesterol, Calculated 11 mg/dL (0-40) Non-HDL Cholesterol Calculated 99 mg/dL (0-129) HDL Cholesterol 59 mg/dL (40-60) Cholesterol/HDL Ratio 2.7 Thyroid Stimulating Hormone (TSH) 6.212 uIU/mL (0.358-3.74) Free Thyroxine 1.36 ng/dL (0.76-1.46) Free Triiodothyronine (T3) pg/mL 2.78 pg/mL (2.18-3.98) Medications Current Medications Iohexol (Omnipaque 300 Mg/ml) 75 ml 1X ONCE IV Last administered on 11/25/17at 16:31; Start 11/25/17 at 16:15; Stop 11/25/17 at 16:16; Status DC Info (CONTRAST GIVEN -- Rx MONITORING) 1 each PRN DAILY PRN MC SEE COMMENTS; Start 11/25/17 at 16:15; Stop 11/27/17 at 16:14 Acetaminophen (Tylenol) 650 mg PRN Q6HRS PRN PO FEVER; Start 11/25/17 at 16:45 Ondansetron HCl (Zofran) 4 mg PRN Q6HRS PRN IV NAUSEA/VOMITING 1ST CHOICE; Start 11/25/17 at 16:45 Morphine Sulfate (Morphine Sulfate) 2 mg PRN Q2HR PRN IV MODERATE TO SEVERE PAIN Last administered on 11/25/17at 19:14; Start 11/25/17 at 16:45 Tramadol HCl (Ultram) 50 mg PRN Q6HRS PRN PO MILD TO MODERATE PAIN; Start 11/25 at 16:45 Hydralazine HCl (Apresoline Inj) 10 mg PRN Q4HRS PRN IVP ELEVATED BP, SEE COMMENTS; Start 11/25/17 at 16:45 Docusate Sodium (Colace) 100 mg PRN DAILY PRN PO HARD STOOLS; Start 11/25/17 at 16:45 Enoxaparin Sodium (Lovenox 40mg Syringe) 40 mg Q24H SQ ; Start 11/25/17 at 17:00 Aspirin (Aspirin) 300 mg DAILY NV Last administered on 11/26/17at 09:49; Start 11/25/17 at 17:00 Sodium Chloride 1,000 ml @ 75 mls/hr [id number] IV Last administered on at 05:56; Start 11/25/17 at 16:45 Lorazepam (Ativan) 0.5 mg PRN Q4HRS PRN IV ANXIETY / AGITATION Last administered on 11/26/17at 00:16; Start 11/25/17 at 21:30; Stop 11/26/17 at 09:24 ; Status DC Haloperidol Lactate (Haldol Inj) 1 mg PRN Q4HRS PRN IVP AGITATION; Start at 21:30 Lorazepam (Ativan) 0.5 mg PRN DAILY PRN IV ANXIETY / AGITATION; Start 11/26/17 at 09:30 Vitals/I & O Vital Sign - Last 24 Hours 11/25/17 11/25/17 11/25/17 11/25/17 15:10 15:15 15:30 16:00 Temp 98.9 98.9 Pulse 62 64 65 76 Resp 14 14 14 20 B/P (MAP) 172/86 (114) Pulse Ox 99 94 95 99 O2 Delivery Room Air 11/25/17 11/25/17 11/25/17 11/25/17 16:15 16:30 16:45 17:15 Temp 98.3 98.3 Pulse 70 70 88 83 Resp 14 12 12 20 B/P (MAP) 199/91 (127) Pulse Ox 97 100 100 99 O2 Delivery Room Air 11/25/17 11/25/17 11/25/17 11/25/17 18:16 19:14 19:49 20:00 Temp 98.1 98.1 Pulse 89 100 Resp 20 20 20 17 B/P (MAP) 179/93 (121) 173/97 (122) Pulse Ox 99 O2 Delivery Room Air Room Air Room Air Room Air O2 Flow Rate 98.0 11/26/17 11/26/17 11/26/17 11/26/17 00:21 03:55 08:00 12:30 Temp 98.4 99.5 99.7 99.0 98.4 99.5 99.7 99.0 Pulse 72 69 83 68 Resp 15 17 19 20 B/P (MAP) 140/71 (94) 140/62 (88) 107/58 (74) 100/52 (68) Pulse Ox 93 O2 Delivery Room Air Room Air Room Air Room Air Intake and Output 11/25/17 11/25/17 11/26/17 15:00 23:00 07:00 Intake Total 0 ml Output Total 100 ml 50 ml Balance -100 ml -50 ml DAWSON LONG MD Nov 26, 2017 13:17
--- NOTE | 2017-11-26 13:25 | RAD ---
CT of the head without contrast, 11/26/2017: HISTORY: Mental status change Comparison is made to yesterday's study. There is moderate cerebral atrophy. There are moderate patchy deep white matter lucencies compatible with chronic ischemic change. The ventricles are within normal limits in size. There is no evidence of acute intracranial hemorrhage or mass effect. There is calcific plaquing of the distal internal carotid and vertebrobasilar arteries. IMPRESSION: 1. Chronic findings as described above. 2. No acute intracranial abnormality is detected with no significant change since yesterday's study. Electronically signed by: Odilon De La Garza MD (11/26/2017 1:22 PM) [facility]
--- NOTE | 2017-11-26 14:04 | PDOC2 ---
NEUROLOGY CONSULT Date of Admission Date of Admission DATE: 11/26/17 TIME: 13:47 Reason for Consult Reason for Consult: Altered mental status, weakness Referring Physician Referring Physician: Dr. Uribe Source Source: Chart review, Patient History of Present Illness History of Present Illness The patient is an 87-year-old right-handed male with dementia who had right- sided weakness starting yesterday at about 11 AM. Right-sided weakness was a little better at about 2 when the patient a nap but when the patient woke up about 3 he was weak on the right side again and more confused. Son called EMS. I spoke to Dr. Cruz at 4 PM yesterday. We determine that he was at least 5 hours since last known normal, and therefore was not a candidate for alteplase. I did request a CTA to rule out large vessel disease, and this was negative. The patient was very combative last night and was fighting with the nurses, moving both sides of his body just fine. He was given some Ativan and has been sleepy since. He has been noted to have some periods of apnea. There is no history of prior stroke, seizure, or head injury. Past Medical History CENTRAL NERVOUS SYSTEM: Dementia Past Surgical History Past Surgical History: Pacemaker (defribillator) Family History Family History: No pertinent hx Social History Social History Chews tobacco, son lives with him, no alcohol Current Medications Current Medications Current Medications Iohexol (Omnipaque 300 Mg/ml) 75 ml 1X ONCE IV Last administered on 11/25/17at 16:31; Start 11/25/17 at 16:15; Stop 11/25/17 at 16:16; Status DC Info (CONTRAST GIVEN -- Rx MONITORING) 1 each PRN DAILY PRN MC SEE COMMENTS; Start 11/25/17 at 16:15; Stop 11/27/17 at 16:14 Acetaminophen (Tylenol) 650 mg PRN Q6HRS PRN PO FEVER; Start 11/25/17 at 16:45 Ondansetron HCl (Zofran) 4 mg PRN Q6HRS PRN IV NAUSEA/VOMITING 1ST CHOICE; Start 11/25/17 at 16:45 Morphine Sulfate (Morphine Sulfate) 2 mg PRN Q2HR PRN IV MODERATE TO SEVERE PAIN Last administered on 11/25/17at 19:14; Start 11/25/17 at 16:45 Tramadol HCl (Ultram) 50 mg PRN Q6HRS PRN PO MILD TO MODERATE PAIN; Start 11/25 at 16:45 Hydralazine HCl (Apresoline Inj) 10 mg PRN Q4HRS PRN IVP ELEVATED BP, SEE COMMENTS; Start 11/25/17 at 16:45 Docusate Sodium (Colace) 100 mg PRN DAILY PRN PO HARD STOOLS; Start 11/25/17 at 16:45 Enoxaparin Sodium (Lovenox 40mg Syringe) 40 mg Q24H SQ ; Start 11/25/17 at 17:00 Aspirin (Aspirin) 300 mg DAILY KS Last administered on 11/26/17at 09:49; Start 11/25/17 at 17:00 Sodium Chloride 1,000 ml @ 75 mls/hr [id number] IV Last administered on at 05:56; Start 11/25/17 at 16:45; Stop 11/26/17 at 13:12; Status DC Lorazepam (Ativan) 0.5 mg PRN Q4HRS PRN IV ANXIETY / AGITATION Last administered on 11/26/17at 00:16; Start 11/25/17 at 21:30; Stop 11/26/17 at 09:24 ; Status DC Haloperidol Lactate (Haldol Inj) 1 mg PRN Q4HRS PRN IVP AGITATION; Start at 21:30 Lorazepam (Ativan) 0.5 mg PRN DAILY PRN IV ANXIETY / AGITATION; Start 11/26/17 at 09:30; Stop 11/26/17 at 13:13; Status DC Amino Acids/ Glycerin/ Electrolytes 1,000 ml @ 80 mls/hr [id number] IV ; Start 03/05 at 13:15 Simvastatin (Zocor) 10 mg QHS PO ; Start 11/26/17 at 21:00 Allergies Allergies: Coded Allergies: No Known Drug Allergies (Unverified , 11/25/17) ROS Review of System According to the son, no fevers, chills, weight loss, dyspnea, angina, abdominal pain, change in bowels, or dysuria. 14-point review of systems is negative. Physical Exam Physical Examination General: Well-developed, well-nourished, white male, in no acute distress, breathing very softly HEENT: Normocephalic andatraumatic. Tympanic membranes clear.Temporal arteries pulsatile and nontender.Fundoscopic exam unremarkable Neck: Supple without bruit, no meningismus Musculoskeletal: Stability:see neurologic. Gait exam:see neurologic. Tone:see neurologic. Strength:see neurologic. Neurological: Mental Status:orientation, memory, attention span/concentration, language, fund of knowledge: Eyes are closed, he does not follow commands, he does not speak, he does not respond to voice. Cranial Nerves:Pupils equal and reactive to light, extraocular movements areintact, There is no facial asymmetry. All other cranial related problems are negative except as mentioned before.Reflexes :2+ and symmetric with flexor plantar responses. Motor:Moves both sides slightly to pain. Coordination:Not tested. Gait:Not tested. Sensory:Not tested. Vitals VITALS Vital Signs Date Time Temp Pulse Resp B/P (MAP) Pulse Ox O2 Delivery O2 Flow Rate FiO2 11/26/17 12:30 99.0 68 20 100/52 (68) 93 Room Air 99.0 11/25/17 20:00 98.0 Labs Labs Laboratory Tests Test 11/25/17 15:18 11/25/17 15:28 11/25/17 16:01 11/26/17 04:00 Glucose (Fingerstick) 86 mg/dL (70-99) White Blood Count 4.8 x10^3/uL (4.0-11.0) 8.9 x10^3/uL (4.0-11.0) Red Blood Count 3.73 x10^6/uL (4.30-5.70) 4.03 x10^6/uL (4.30-5.70) Hemoglobin 10.3 g/dL (13.0-17.5) 11.1 g/dL (13.0-17.5) Hematocrit 31.8 % (39.0-53.0) 34.3 % (39.0-53.0) Mean Corpuscular Volume 85 fL (79-100) 85 fL (79-100) Mean Corpuscular Hemoglobin 28 pg (25-35) 28 pg (25-35) Mean Corpuscular Hemoglobin Concent 32 g/dL (31-37) 32 g/dL (31-37) Red Cell Distribution Width 16.8 % (11.5-14.5) 16.3 % (11.5-14.5) Platelet Count 139 x10^3/uL (140-400) 137 x10^3/uL (140-400) Neutrophils (%) (Auto) 72 % (31-73) 84 % (31-73) Lymphocytes (%) (Auto) 17 % (24-48) 7 % (24-48) Monocytes (%) (Auto) 7 % (0-9) 8 % (0-9) Eosinophils (%) (Auto) 3 % (0-3) 0 % (0-3) Basophils (%) (Auto) 1 % (0-3) 1 % (0-3) Neutrophils # (Auto) 3.4 x10^3uL (1.8-7.7) 7.5 x10^3uL (1.8-7.7) Lymphocytes # (Auto) 0.8 x10^3/uL (1.0-4.8) 0.6 x10^3/uL (1.0-4.8) Monocytes # (Auto) 0.3 x10^3/uL (0.0-1.1) 0.7 x10^3/uL (0.0-1.1) Eosinophils # (Auto) 0.1 x10^3/uL (0.0-0.7) 0.0 x10^3/uL (0.0-0.7) Basophils # (Auto) 0.1 x10^3/uL (0.0-0.2) 0.0 x10^3/uL (0.0-0.2) Prothrombin Time 14.1 SEC (11.7-14.0) Prothromb Time International Ratio 1.1 (0.8-1.1) Activated Partial Thromboplast Time 29 SEC (24-38) Sodium Level 144 mmol/L (136-145) 144 mmol/L (136-145) Potassium Level 4.2 mmol/L (3.5-5.1) 3.7 mmol/L (3.5-5.1) Chloride Level 106 mmol/L (98-107) 106 mmol/L (98-107) Carbon Dioxide Level 32 mmol/L (21-32) 30 mmol/L (21-32) Anion Gap 6 (6-14) 8 (6-14) Blood Urea Nitrogen 23 mg/dL (8-26) 20 mg/dL (8-26) Creatinine 1.1 mg/dL (0.7-1.3) 1.1 mg/dL (0.7-1.3) Estimated GFR (Cockcroft-Gault) 63.6 63.6 BUN/Creatinine Ratio 21 (6-20) Glucose Level 90 mg/dL (70-99) 91 mg/dL (70-99) Lactic Acid Level 1.2 mmol/L (0.4-2.0) Calcium Level 9.1 mg/dL (8.5-10.1) 9.0 mg/dL (8.5-10.1) Total Bilirubin 0.3 mg/dL (0.2-1.0) Aspartate Amino Transf (AST/SGOT) 32 U/L (15-37) Alanine Aminotransferase (ALT/SGPT) 23 U/L (16-63) Alkaline Phosphatase 69 U/L (46-116) Troponin I Quantitative 0.019 ng/mL (0.000-0.055) Total Protein 6.4 g/dL (6.4-8.2) Albumin 3.5 g/dL (3.4-5.0) Albumin/Globulin Ratio 1.2 (1.0-1.7) Urine Collection Type Unknown Urine Color Yellow Urine Clarity Clear Urine pH 7.0 Urine Specific [place] 1.010 Urine Protein Negative mg/dL (NEG-TRACE) Urine Glucose (UA) Negative mg/dL (NEG) Urine Ketones (Stick) Negative mg/dL (NEG) Urine Blood Negative (NEG) Urine Nitrite Negative (NEG) Urine Bilirubin Negative (NEG) Urine Urobilinogen Dipstick 0.2 mg/dL (0.2 mg/dL) Urine Leukocyte Esterase Trace (NEG) Urine RBC 0 /HPF (0-2) Urine WBC 1-4 /HPF (0-4) Urine Bacteria 0 /HPF (0-FEW) Urine Hyaline Casts Moderate /HPF Urine Mucus Slight /LPF Triglycerides Level 54 mg/dL (0-150) Cholesterol Level 158 mg/dL (0-200) LDL Cholesterol, Calculated 88 mg/dL (0-100) VLDL Cholesterol, Calculated 11 mg/dL (0-40) Non-HDL Cholesterol Calculated 99 mg/dL (0-129) HDL Cholesterol 59 mg/dL (40-60) Cholesterol/HDL Ratio 2.7 Thyroid Stimulating Hormone (TSH) 6.212 uIU/mL (0.358-3.74) Free Thyroxine 1.36 ng/dL (0.76-1.46) Free Triiodothyronine (T3) pg/mL 2.78 pg/mL (2.18-3.98) Laboratory Tests Test 11/25/17 15:18 11/25/17 15:28 11/25/17 16:01 11/26/17 04:00 Glucose (Fingerstick) 86 mg/dL (70-99) White Blood Count 4.8 x10^3/uL (4.0-11.0) 8.9 x10^3/uL (4.0-11.0) Red Blood Count 3.73 x10^6/uL (4.30-5.70) 4.03 x10^6/uL (4.30-5.70) Hemoglobin 10.3 g/dL (13.0-17.5) 11.1 g/dL (13.0-17.5) Hematocrit 31.8 % (39.0-53.0) 34.3 % (39.0-53.0) Mean Corpuscular Volume 85 fL (79-100) 85 fL (79-100) Mean Corpuscular Hemoglobin 28 pg (25-35) 28 pg (25-35) Mean Corpuscular Hemoglobin Concent 32 g/dL (31-37) 32 g/dL (31-37) Red Cell Distribution Width 16.8 % (11.5-14.5) 16.3 % (11.5-14.5) Platelet Count 139 x10^3/uL (140-400) 137 x10^3/uL (140-400) Neutrophils (%) (Auto) 72 % (31-73) 84 % (31-73) Lymphocytes (%) (Auto) 17 % (24-48) 7 % (24-48) Monocytes (%) (Auto) 7 % (0-9) 8 % (0-9) Eosinophils (%) (Auto) 3 % (0-3) 0 % (0-3) Basophils (%) (Auto) 1 % (0-3) 1 % (0-3) Neutrophils # (Auto) 3.4 x10^3uL (1.8-7.7) 7.5 x10^3uL (1.8-7.7) Lymphocytes # (Auto) 0.8 x10^3/uL (1.0-4.8) 0.6 x10^3/uL (1.0-4.8) Monocytes # (Auto) 0.3 x10^3/uL (0.0-1.1) 0.7 x10^3/uL (0.0-1.1) Eosinophils # (Auto) 0.1 x10^3/uL (0.0-0.7) 0.0 x10^3/uL (0.0-0.7) Basophils # (Auto) 0.1 x10^3/uL (0.0-0.2) 0.0 x10^3/uL (0.0-0.2) Prothrombin Time 14.1 SEC (11.7-14.0) Prothromb Time International Ratio 1.1 (0.8-1.1) Activated Partial Thromboplast Time 29 SEC (24-38) Sodium Level 144 mmol/L (136-145) 144 mmol/L (136-145) Potassium Level 4.2 mmol/L (3.5-5.1) 3.7 mmol/L (3.5-5.1) Chloride Level 106 mmol/L (98-107) 106 mmol/L (98-107) Carbon Dioxide Level 32 mmol/L (21-32) 30 mmol/L (21-32) Anion Gap 6 (6-14) 8 (6-14) Blood Urea Nitrogen 23 mg/dL (8-26) 20 mg/dL (8-26) Creatinine 1.1 mg/dL (0.7-1.3) 1.1 mg/dL (0.7-1.3) Estimated GFR (Cockcroft-Gault) 63.6 63.6 BUN/Creatinine Ratio 21 (6-20) Glucose Level 90 mg/dL (70-99) 91 mg/dL (70-99) Lactic Acid Level 1.2 mmol/L (0.4-2.0) Calcium Level 9.1 mg/dL (8.5-10.1) 9.0 mg/dL (8.5-10.1) Total Bilirubin 0.3 mg/dL (0.2-1.0) Aspartate Amino Transf (AST/SGOT) 32 U/L (15-37) Alanine Aminotransferase (ALT/SGPT) 23 U/L (16-63) Alkaline Phosphatase 69 U/L (46-116) Troponin I Quantitative 0.019 ng/mL (0.000-0.055) Total Protein 6.4 g/dL (6.4-8.2) Albumin 3.5 g/dL (3.4-5.0) Albumin/Globulin Ratio 1.2 (1.0-1.7) Urine Collection Type Unknown Urine Color Yellow Urine Clarity Clear Urine pH 7.0 Urine Specific [place] 1.010 Urine Protein Negative mg/dL (NEG-TRACE) Urine Glucose (UA) Negative mg/dL (NEG) Urine Ketones (Stick) Negative mg/dL (NEG) Urine Blood Negative (NEG) Urine Nitrite Negative (NEG) Urine Bilirubin Negative (NEG) Urine Urobilinogen Dipstick 0.2 mg/dL (0.2 mg/dL) Urine Leukocyte Esterase Trace (NEG) Urine RBC 0 /HPF (0-2) Urine WBC 1-4 /HPF (0-4) Urine Bacteria 0 /HPF (0-FEW) Urine Hyaline Casts Moderate /HPF Urine Mucus Slight /LPF Triglycerides Level 54 mg/dL (0-150) Cholesterol Level 158 mg/dL (0-200) LDL Cholesterol, Calculated 88 mg/dL (0-100) VLDL Cholesterol, Calculated 11 mg/dL (0-40) Non-HDL Cholesterol Calculated 99 mg/dL (0-129) HDL Cholesterol 59 mg/dL (40-60) Cholesterol/HDL Ratio 2.7 Thyroid Stimulating Hormone (TSH) 6.212 uIU/mL (0.358-3.74) Free Thyroxine 1.36 ng/dL (0.76-1.46) Free Triiodothyronine (T3) pg/mL 2.78 pg/mL (2.18-3.98) Images Images CT of the head without contrast, 11/26/2017: HISTORY: Mental status change Comparison is made to yesterday's study. There is moderate cerebral atrophy. There are moderate patchy deep white matter lucencies compatible with chronic ischemic change. The ventricles are within normal limits in size. There is no evidence of acute intracranial hemorrhage or mass effect. There is calcific plaquing of the distal internal carotid and vertebrobasilar arteries. IMPRESSION: 1. Chronic findings as described above. 2. No acute intracranial abnormality is detected with no significant change since yesterday's study. CT head without intravenous contrast, 11/25 History: Code stroke. Right facial through. Right-sided weakness. Slurred speech. Comparison: None. Technique: Axial images are obtained of the head from the skull base through the vertex without IV contrast. Exposure: One or more of the following individualized dose reduction techniques were utilized for this examination: 1. Automated exposure control 2. Adjustment of the mA and/or kV according to patient size 3. Use of iterative reconstruction technique Findings: There is motion artifact at a few levels which could obscure subtle abnormalities. The ventricles are appropriate in size, shape, and location for the patient's age. No obvious intracranial mass, mass-effect, midline shift, hemorrhage or obvious acute infarction is identified. Basilar cisterns are patent. Mild-moderate nonspecific white matter low-attenuation seen, probably from chronic microvascular ischemic disease. Bone windows demonstrate no acute calvarial abnormality. The visualized paranasal sinuses appear clear. Bilateral cerumen is seen. Impression: 1. Mildly limited by motion. No acute intracranial process. Please note that CT can be relatively insensitive to acute ischemic infarction for up to 24 hours after symptom onset. 2. Mild nonspecific white matter changes, probably from chronic microvascular ischemic disease. 3. Results were telephoned to referring physician, Dr. Cruz, at 1524 hours. CTA HEAD/NECK - CODE STROKE PQRS Compliance Statement: One or more of the following individualized dose reduction techniques were utilized for this examination: 1. Automated exposure control 2. Adjustment of the mA and/or kV according to patient size 3. Use of iterative reconstruction technique CTA head and neck with contrast 11/25/2017 4:20 PM INDICATION: Code stroke. Slurred speech and facial droop. Focal weakness. COMPARISON: CT head 11/25/2017 TECHNIQUE: Multiple axial CT images of the head were obtained without intravenous contrast. Multiple axial CT images of the head and neck were obtained after the intravenous administration of 75 mL Omnipaque 300. Coronal and sagittal reformats are provided. Maximum intensity projection images of the intracranial and cervical vasculature are provided. FINDINGS: Nonvascular findings: [place] Picker image reveals no significant abnormality. Scalp and calvaria are intact. The ventricles, sulci and basal cisterns are normal in appearance. There is normal arceo-white matter differentiation. Few scattered foci of hypoattenuation in the periventricular and subcortical white matter are suggestive of chronic small vessel ischemic changes. There is no hydrocephalus. There is no acute intracranial hemorrhage. There is no mass, mass effect or midline shift. Posterior fossa is normal in appearance. Sella and suprasellar cistern appear normal. Orbits are normal in appearance with exception of bilateral lens replacement. Paranasal sinuses are well aerated. Mastoid air cells are well aerated. There are no suspicious enhancing intracranial lesions. Nasopharynx, oropharynx and hypopharynx appear normal. Glottic structures appear intact. Laryngeal cartilages are intact. Thyroid gland is normal in appearance. There are no pathologically enlarged cervical lymph nodes. Parotid glands and submandibular glands appear intact. Scout [employer] space and parapharyngeal spaces appear intact. There is moderate centrilobular pulmonary emphysema. There is a 3 mm solid noncalcified pulmonary nodule in the left upper lobe. Subpleural nodular densities are identified along the right lung apex which may represent scarring. For example, there is a 5 mm spiculated subpleural nodule (series 3, image 75). There is mild cervical spondylosis, most prominent at C4-C5 with minimal retrolisthesis of C4 on C5. Vascular findings: Visualized portions of the pulmonary arteries are patent. Ascending thoracic aorta is normal in caliber. Origin of the brachiocephalic vessels appear widely patent. Normal three-vessel aortic arch is visualized. Origin of the right common carotid artery is normal. Right common carotid artery is normal in course and caliber. There is minor atherosclerotic calcination of the right carotid bifurcation without significant stenosis of the proximal right internal carotid artery or external carotid artery. Left common carotid artery is normal in course and caliber. 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 Origin of the external carotid artery is widely patent. Right vertebral artery is normal in course and caliber with moderate stenosis at the origin. Left vertebral artery is normal in course and caliber an patent at the origin. Intracranial segments of internal carotid arteries are normal in course and caliber with exception of mild irregularity involving the cavernous segments, likely secondary to atheromatous plaque. Middle cerebral arteries are normal in course and caliber with patent sylvian branches. A1 segments are present and normal in appearance. Anterior cerebral arteries are normal in course and caliber. Left vertebral artery is dominant. Right vertebral artery terminates in the right posterior inferior cerebellar artery territory. Vertebral basilar junction is normal. Basilar artery is normal in course and caliber. Anterior inferior cerebellar arteries and superior cerebellar arteries are normal. P1 segments of the posterior cerebral arteries are patent. Posterior cerebral arteries are normal in course and caliber. 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 Opacified portions of the deep venous sinuses appear patent including the superior sagittal sinus. IMPRESSION: 1. No acute intracranial hemorrhage. 2. 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 There is no significant right carotid stenosis. There is moderate stenosis of the origin of the right vertebral artery. Right vertebral artery terminates in the posterior inferior cerebellar artery distribution. 3. 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 4. PQRS statement: Carotid stenosis calculations are performed utilizing NASCET Criteria. 5. 3 mm solid noncalcified pulmonary nodule in the left upper lobe. 5 mm solid noncalcified spiculated nodule in the right upper lobe along the right lung apex. A six-month follow-up CT chest may be of benefit. Assessment/Plan Assessment/Plan Impression: He has now had [address] scans in his exam, limited by his level of consciousness, is nonfocal, so I do not think he had a stroke. Advanced dementia Encephalopathy, probably partly due to the Ativan. Overall condition is poor, he appears to be actively dying. Recommendations: I discussed with the son by phone. He would like him to be a DO NOT RESUSCITATE. He is going to come in as soon as he can. He does not think the patient should have any aggressive therapy. Therefore, comfort care. Thank you for letting me help with the patient's care. AYANA ADAME MD Nov 26, 2017 14:03
[2017-11-26] MEDS: ENOXAPARIN 40 MG/0.4 ML SYRINGE. SQ SCH (17:00)
[2017-11-26] MEDS: AMINO AC 3%/ELECTROLYTE/GLYCER 1,000 ML IV SCH (18:10)
[2017-11-26] MEDS: SIMVASTATIN 10 MG TABLET PO SCH (20:43)
[2017-11-27] MEDS: AMINO AC 3%/ELECTROLYTE/GLYCER 1,000 ML IV SCH ×2 (01:25→16:02)
[2017-11-27 06:38] LABS: CREATININE 1.3 mg/dL (0.7-1.3); GFR 52.5; POTASSIUM 4.3 mmol/L (3.5-5.1)
[2017-11-27 07:54] VITALS: BP 136/66
[2017-11-27 08:29] LABS: BASO % 0 % (0-3); EOS % 0 % (0-3); HEMATOCRIT 34.9 % (39.0-53.0); HEMOGLOBIN 11.4 g/dL (13.0-17.5); LYMPH # 0.7 x10^3/uL (1.0-4.8); LYMPH % 9 % (24-48); MEAN CORPUSCULAR HEMOGLOBIN 28 pg (25-35); MEAN CORPUSCULAR HGB CONC 33 g/dL (31-37); MEAN CORPUSCULAR VOLUME 85 fL (79-100); MONO # 0.5 x10^3/uL (0.0-1.1); MONO % 6 % (0-9); NEUT # 6.5 x10^3uL (1.8-7.7); NEUT % 85 % (31-73); PLATELET COUNT 117 x10^3/uL (140-400); RED BLOOD COUNT 4.11 x10^6/uL (4.30-5.70); WHITE BLOOD COUNT 7.7 x10^3/uL (4.0-11.0)
[2017-11-27] MEDS: ASPIRIN 300 MG SUPP.RECT PR SCH (10:10)
[2017-11-27 11:01] LABS: % BANDS 40 % (0-9); % BASOS 1 % (0-3); % LYMPHS 6 % (24-48); % METAS 1 % (0-0); % MONOS 6 % (0-10); % SEGS 46 % (35-66); NUCLEATED RBC 1
[2017-11-27 11:02] LABS: ANISOCYTOSIS PRESENT; PLT ESTIMATE DECREASED (ADEQUATE)
[2017-11-27 11:03] VITALS: BP 102/61
[2017-11-27] MEDS ORDERED: ACETAMINOPHEN 650 MG SUPP.RECT. PR PRN (11:30)
[2017-11-27] MEDS: MORPHINE SULFATE 2 MG/ML DISP.SYRIN. IV PRN ×3 (11:39→22:41)
--- NOTE | 2017-11-27 13:47 | PDOC ---
PROGRESS NOTES Assessment Problems Medical Problems: (1) Acute focal neurological deficit Status: Acute (2) Anemia Status: Acute (3) Atrial fibrillation Status: Acute (4) Dementia Status: Acute No sign of stroke, [address] scans Incidental aneurysm Advanced dementia Encephalopathy, probably partly due to the Ativan. Overall condition is poor, he appears to be actively dying. Plan Patient is on comfort care Neurology signs off Subjective none Objective Vital Signs Date Time Temp Pulse Resp B/P (MAP) Pulse Ox O2 Delivery O2 Flow Rate FiO2 11/27/17 11:39 20 88 Nasal Cannula 20.0 11/27/17 11:03 100.2 78 102/61 (75) 100.2 Intake and Output 11/27/17 07:00 Intake Total 0 ml Balance 0 ml Intake Oral 0 ml # Voids 2 PHYSICAL EXAM Eyes closed, no response to voice PERRL. EOMI. CN: no focal findings. Muscle tone: normal. Muscle strength: Does not move to command or minimal stimulation DTR: 1+ Plantar reflex: Silent Gait: not examined in bed. Sensory exam: no abnormal findings. No cerebellar signs elicited. Review of Relevant I have reviewed the following items kendell (where applicable) has been applied. Labs Laboratory Tests Test 11/25/17 15:18 11/25/17 15:28 11/25/17 16:01 11/25/17 17:15 Glucose (Fingerstick) 86 mg/dL (70-99) White Blood Count 4.8 x10^3/uL (4.0-11.0) Red Blood Count 3.73 x10^6/uL (4.30-5.70) Hemoglobin 10.3 g/dL (13.0-17.5) Hematocrit 31.8 % (39.0-53.0) Mean Corpuscular Volume 85 fL (79-100) Mean Corpuscular Hemoglobin 28 pg (25-35) Mean Corpuscular Hemoglobin Concent 32 g/dL (31-37) Red Cell Distribution Width 16.8 % (11.5-14.5) Platelet Count 139 x10^3/uL (140-400) Neutrophils (%) (Auto) 72 % (31-73) Lymphocytes (%) (Auto) 17 % (24-48) Monocytes (%) (Auto) 7 % (0-9) Eosinophils (%) (Auto) 3 % (0-3) Basophils (%) (Auto) 1 % (0-3) Neutrophils # (Auto) 3.4 x10^3uL (1.8-7.7) Lymphocytes # (Auto) 0.8 x10^3/uL (1.0-4.8) Monocytes # (Auto) 0.3 x10^3/uL (0.0-1.1) Eosinophils # (Auto) 0.1 x10^3/uL (0.0-0.7) Basophils # (Auto) 0.1 x10^3/uL (0.0-0.2) Prothrombin Time 14.1 SEC (11.7-14.0) Prothromb Time International Ratio 1.1 (0.8-1.1) Activated Partial Thromboplast Time 29 SEC (24-38) Sodium Level 144 mmol/L (136-145) Potassium Level 4.2 mmol/L (3.5-5.1) Chloride Level 106 mmol/L (98-107) Carbon Dioxide Level 32 mmol/L (21-32) Anion Gap 6 (6-14) Blood Urea Nitrogen 23 mg/dL (8-26) Creatinine 1.1 mg/dL (0.7-1.3) Estimated GFR (Cockcroft-Gault) 63.6 BUN/Creatinine Ratio 21 (6-20) Glucose Level 90 mg/dL (70-99) Lactic Acid Level 1.2 mmol/L (0.4-2.0) Calcium Level 9.1 mg/dL (8.5-10.1) Total Bilirubin 0.3 mg/dL (0.2-1.0) Aspartate Amino Transf (AST/SGOT) 32 U/L (15-37) Alanine Aminotransferase (ALT/SGPT) 23 U/L (16-63) Alkaline Phosphatase 69 U/L (46-116) Troponin I Quantitative 0.019 ng/mL (0.000-0.055) Total Protein 6.4 g/dL (6.4-8.2) Albumin 3.5 g/dL (3.4-5.0) Albumin/Globulin Ratio 1.2 (1.0-1.7) Urine Collection Type Unknown Urine Color Yellow Urine Clarity Clear Urine pH 7.0 Urine Specific [place] 1.010 Urine Protein Negative mg/dL (NEG-TRACE) Urine Glucose (UA) Negative mg/dL (NEG) Urine Ketones (Stick) Negative mg/dL (NEG) Urine Blood Negative (NEG) Urine Nitrite Negative (NEG) Urine Bilirubin Negative (NEG) Urine Urobilinogen Dipstick 0.2 mg/dL (0.2 mg/dL) Urine Leukocyte Esterase Trace (NEG) Urine RBC 0 /HPF (0-2) Urine WBC 1-4 /HPF (0-4) Urine Bacteria 0 /HPF (0-FEW) Urine Hyaline Casts Moderate /HPF Urine Mucus Slight /LPF Nasal Screen MRSA (PCR) Negative (Negative) Test 11/26/17 04:00 11/27/17 05:20 11/27/17 07:30 White Blood Count 8.9 x10^3/uL (4.0-11.0) 7.7 x10^3/uL (4.0-11.0) Red Blood Count 4.03 x10^6/uL (4.30-5.70) 4.11 x10^6/uL (4.30-5.70) Hemoglobin 11.1 g/dL (13.0-17.5) 11.4 g/dL (13.0-17.5) Hematocrit 34.3 % (39.0-53.0) 34.9 % (39.0-53.0) Mean Corpuscular Volume 85 fL (79-100) 85 fL (79-100) Mean Corpuscular Hemoglobin 28 pg (25-35) 28 pg (25-35) Mean Corpuscular Hemoglobin Concent 32 g/dL (31-37) 33 g/dL (31-37) Red Cell Distribution Width 16.3 % (11.5-14.5) 17.0 % (11.5-14.5) Platelet Count 137 x10^3/uL (140-400) 117 x10^3/uL (140-400) Neutrophils (%) (Auto) 84 % (31-73) 85 % (31-73) Lymphocytes (%) (Auto) 7 % (24-48) 9 % (24-48) Monocytes (%) (Auto) 8 % (0-9) 6 % (0-9) Eosinophils (%) (Auto) 0 % (0-3) 0 % (0-3) Basophils (%) (Auto) 1 % (0-3) 0 % (0-3) Neutrophils # (Auto) 7.5 x10^3uL (1.8-7.7) 6.5 x10^3uL (1.8-7.7) Lymphocytes # (Auto) 0.6 x10^3/uL (1.0-4.8) 0.7 x10^3/uL (1.0-4.8) Monocytes # (Auto) 0.7 x10^3/uL (0.0-1.1) 0.5 x10^3/uL (0.0-1.1) Eosinophils # (Auto) 0.0 x10^3/uL (0.0-0.7) 0.0 x10^3/uL (0.0-0.7) Basophils # (Auto) 0.0 x10^3/uL (0.0-0.2) 0.0 x10^3/uL (0.0-0.2) Sodium Level 144 mmol/L (136-145) 135 mmol/L (136-145) Potassium Level 3.7 mmol/L (3.5-5.1) 4.3 mmol/L (3.5-5.1) Chloride Level 106 mmol/L (98-107) 106 mmol/L (98-107) Carbon Dioxide Level 30 mmol/L (21-32) 21 mmol/L (21-32) Anion Gap 8 (6-14) 8 (6-14) Blood Urea Nitrogen 20 mg/dL (8-26) 35 mg/dL (8-26) Creatinine 1.1 mg/dL (0.7-1.3) 1.3 mg/dL (0.7-1.3) Estimated GFR (Cockcroft-Gault) 63.6 52.5 Glucose Level 91 mg/dL (70-99) 96 mg/dL (70-99) Calcium Level 9.0 mg/dL (8.5-10.1) 9.0 mg/dL (8.5-10.1) Triglycerides Level 54 mg/dL (0-150) Cholesterol Level 158 mg/dL (0-200) LDL Cholesterol, Calculated 88 mg/dL (0-100) VLDL Cholesterol, Calculated 11 mg/dL (0-40) Non-HDL Cholesterol Calculated 99 mg/dL (0-129) HDL Cholesterol 59 mg/dL (40-60) Cholesterol/HDL Ratio 2.7 Thyroid Stimulating Hormone (TSH) 6.212 uIU/mL (0.358-3.74) Free Thyroxine 1.36 ng/dL (0.76-1.46) Free Triiodothyronine (T3) pg/mL 2.78 pg/mL (2.18-3.98) Segmented Neutrophils % 46 % (35-66) Band Neutrophils % 40 % (0-9) Lymphocytes % 6 % (24-48) Monocytes % 6 % (0-10) Basophils % 1 % (0-3) Metamyelocytes % 1 % (0-0) Nucleated Red Blood Cells 1 Platelet Estimate Decreased (ADEQUATE) Anisocytosis Present Laboratory Tests Test 11/27/17 05:20 11/27/17 07:30 Sodium Level 135 mmol/L (136-145) Potassium Level 4.3 mmol/L (3.5-5.1) Chloride Level 106 mmol/L (98-107) Carbon Dioxide Level 21 mmol/L (21-32) Anion Gap 8 (6-14) Blood Urea Nitrogen 35 mg/dL (8-26) Creatinine 1.3 mg/dL (0.7-1.3) Estimated GFR (Cockcroft-Gault) 52.5 Glucose Level 96 mg/dL (70-99) Calcium Level 9.0 mg/dL (8.5-10.1) White Blood Count 7.7 x10^3/uL (4.0-11.0) Red Blood Count 4.11 x10^6/uL (4.30-5.70) Hemoglobin 11.4 g/dL (13.0-17.5) Hematocrit 34.9 % (39.0-53.0) Mean Corpuscular Volume 85 fL (79-100) Mean Corpuscular Hemoglobin 28 pg (25-35) Mean Corpuscular Hemoglobin Concent 33 g/dL (31-37) Red Cell Distribution Width 17.0 % (11.5-14.5) Platelet Count 117 x10^3/uL (140-400) Neutrophils (%) (Auto) 85 % (31-73) Lymphocytes (%) (Auto) 9 % (24-48) Monocytes (%) (Auto) 6 % (0-9) Eosinophils (%) (Auto) 0 % (0-3) Basophils (%) (Auto) 0 % (0-3) Neutrophils # (Auto) 6.5 x10^3uL (1.8-7.7) Lymphocytes # (Auto) 0.7 x10^3/uL (1.0-4.8) Monocytes # (Auto) 0.5 x10^3/uL (0.0-1.1) Eosinophils # (Auto) 0.0 x10^3/uL (0.0-0.7) Basophils # (Auto) 0.0 x10^3/uL (0.0-0.2) Segmented Neutrophils % 46 % (35-66) Band Neutrophils % 40 % (0-9) Lymphocytes % 6 % (24-48) Monocytes % 6 % (0-10) Basophils % 1 % (0-3) Metamyelocytes % 1 % (0-0) Nucleated Red Blood Cells 1 Platelet Estimate Decreased (ADEQUATE) Anisocytosis Present Medications Current Medications Iohexol (Omnipaque 300 Mg/ml) 75 ml 1X ONCE IV Last administered on 11/25/17at 16:31; Start 11/25/17 at 16:15; Stop 11/25/17 at 16:16; Status DC Info (CONTRAST GIVEN -- Rx MONITORING) 1 each PRN DAILY PRN MC SEE COMMENTS; Start 11/25/17 at 16:15; Stop 11/27/17 at 16:14 Acetaminophen (Tylenol) 650 mg PRN Q6HRS PRN PO FEVER; Start 11/25/17 at 16:45 Ondansetron HCl (Zofran) 4 mg PRN Q6HRS PRN IV NAUSEA/VOMITING 1ST CHOICE; Start 11/25/17 at 16:45 Morphine Sulfate (Morphine Sulfate) 2 mg PRN Q2HR PRN IV MODERATE TO SEVERE PAIN Last administered on 11/27/17at 11:39; Start 11/25/17 at 16:45 Tramadol HCl (Ultram) 50 mg PRN Q6HRS PRN PO MILD TO MODERATE PAIN; Start 11/25 at 16:45 Hydralazine HCl (Apresoline Inj) 10 mg PRN Q4HRS PRN IVP ELEVATED BP, SEE COMMENTS; Start 11/25/17 at 16:45 Docusate Sodium (Colace) 100 mg PRN DAILY PRN PO HARD STOOLS; Start 11/25/17 at 16:45 Enoxaparin Sodium (Lovenox 40mg Syringe) 40 mg Q24H SQ ; Start 11/25/17 at 17:00 Aspirin (Aspirin) 300 mg DAILY RI Last administered on 11/27/17at 10:10; Start 11/25/17 at 17:00 Sodium Chloride 1,000 ml @ 75 mls/hr [id number] IV Last administered on at 05:56; Start 11/25/17 at 16:45; Stop 11/26/17 at 13:12; Status DC Lorazepam (Ativan) 0.5 mg PRN Q4HRS PRN IV ANXIETY / AGITATION Last administered on 11/26/17at 00:16; Start 11/25/17 at 21:30; Stop 11/26/17 at 09:24 ; Status DC Haloperidol Lactate (Haldol Inj) 1 mg PRN Q4HRS PRN IVP AGITATION; Start at 21:30 Lorazepam (Ativan) 0.5 mg PRN DAILY PRN IV ANXIETY / AGITATION; Start 11/26/17 at 09:30; Stop 11/26/17 at 13:13; Status DC Amino Acids/ Glycerin/ Electrolytes 1,000 ml @ 80 mls/hr [id number] IV Last administered on 11/27/17at 01:25; Start 11/26/17 at 13:15 Simvastatin (Zocor) 10 mg QHS PO ; Start 11/26/17 at 21:00 Acetaminophen (Tylenol Supp) 650 mg PRN Q6HRS PRN RI MILD PAIN / TEMP Last administered on 11/27/17at 11:37; Start 11/27/17 at 11:30 Vitals/I & O Vital Sign - Last 24 Hours 11/26/17 11/26/17 11/26/17 11/27/17 13:54 15:33 19:37 03:45 Temp 100.9 100.9 101.8 100.9 100.9 101.8 Pulse 68 64 70 Resp 18 18 16 20 B/P (MAP) 107/49 (68) 117/51 (73) 121/70 (87) Pulse Ox 94 94 91 O2 Delivery Room Air Room Air Room Air Room Air 8/04/0411/27/17 11/27/17 07:54 11:03 11:39 Temp 99.0 100.2 99.0 100.2 Pulse 69 78 Resp 12 18 20 B/P (MAP) 136/66 (89) 102/61 (75) Pulse Ox 90 85 88 O2 Delivery Room Air Room Air Nasal Cannula O2 Flow Rate 20.0 Intake and Output 11/26/17 11/26/17 11/27/17 15:00 23:00 07:00 Intake Total 0 ml 0 ml Balance 0 ml 0 ml AYANA ADAME MD Nov 27, 2017 13:47
--- NOTE | 2017-11-27 14:40 | PDOC ---
PROGRESS NOTES Chief Complaint Chief Complaint acute encephalopathy NOS baseline mild dementia bl hearing loss PPM with afib wo ac h/o diverticulitis with gib normocytic anemia thrombocytopenia AMS, metabolic encephalopathy worsened s/p ativan in hosp bl lung 3-5mm nodule with remote smoking history small brain aneurysm, likely benign History of Present Illness History of Present Illness neuro following and CT head neg melgar metabolic dyscrasias swallow eval when more awake IV fluid nutrition support, neurocheck q4h PTOT when able try to allow to awaken ROS: not talkative Vitals Vitals Vital Signs Date Time Temp Pulse Resp B/P (MAP) Pulse Ox O2 Delivery O2 Flow Rate FiO2 11/27/17 11:39 20 88 Nasal Cannula 20.0 11/27/17 11:03 100.2 78 102/61 (75) 100.2 Physical Exam Physical Exam unresponsive , post ativan x2 overnight Heart: Regular rate, Normal S1, Normal S2 Lungs: Clear Abdomen: Normal bowel sounds, Soft Extremities: No clubbing, No cyanosis Skin: No rashes Labs LABS Laboratory Tests Test 11/27/17 05:20 11/27/17 07:30 Sodium Level 135 mmol/L (136-145) Potassium Level 4.3 mmol/L (3.5-5.1) Chloride Level 106 mmol/L (98-107) Carbon Dioxide Level 21 mmol/L (21-32) Anion Gap 8 (6-14) Blood Urea Nitrogen 35 mg/dL (8-26) Creatinine 1.3 mg/dL (0.7-1.3) Estimated GFR (Cockcroft-Gault) 52.5 Glucose Level 96 mg/dL (70-99) Calcium Level 9.0 mg/dL (8.5-10.1) White Blood Count 7.7 x10^3/uL (4.0-11.0) Red Blood Count 4.11 x10^6/uL (4.30-5.70) Hemoglobin 11.4 g/dL (13.0-17.5) Hematocrit 34.9 % (39.0-53.0) Mean Corpuscular Volume 85 fL (79-100) Mean Corpuscular Hemoglobin 28 pg (25-35) Mean Corpuscular Hemoglobin Concent 33 g/dL (31-37) Red Cell Distribution Width 17.0 % (11.5-14.5) Platelet Count 117 x10^3/uL (140-400) Neutrophils (%) (Auto) 85 % (31-73) Lymphocytes (%) (Auto) 9 % (24-48) Monocytes (%) (Auto) 6 % (0-9) Eosinophils (%) (Auto) 0 % (0-3) Basophils (%) (Auto) 0 % (0-3) Neutrophils # (Auto) 6.5 x10^3uL (1.8-7.7) Lymphocytes # (Auto) 0.7 x10^3/uL (1.0-4.8) Monocytes # (Auto) 0.5 x10^3/uL (0.0-1.1) Eosinophils # (Auto) 0.0 x10^3/uL (0.0-0.7) Basophils # (Auto) 0.0 x10^3/uL (0.0-0.2) Segmented Neutrophils % 46 % (35-66) Band Neutrophils % 40 % (0-9) Lymphocytes % 6 % (24-48) Monocytes % 6 % (0-10) Basophils % 1 % (0-3) Metamyelocytes % 1 % (0-0) Nucleated Red Blood Cells 1 Platelet Estimate Decreased (ADEQUATE) Anisocytosis Present Assessment and Plan Assessmemt and Plan Problems Medical Problems: (1) Acute focal neurological deficit Status: Acute (2) Anemia Status: Acute (3) Atrial fibrillation Status: Acute (4) Dementia Status: Acute Comment Review of Relevant I have reviewed the following items kendell (where applicable) has been applied. Labs Laboratory Tests Test 11/25/17 15:18 11/25/17 15:28 11/25/17 16:01 11/25/17 17:15 Glucose (Fingerstick) 86 mg/dL (70-99) White Blood Count 4.8 x10^3/uL (4.0-11.0) Red Blood Count 3.73 x10^6/uL (4.30-5.70) Hemoglobin 10.3 g/dL (13.0-17.5) Hematocrit 31.8 % (39.0-53.0) Mean Corpuscular Volume 85 fL (79-100) Mean Corpuscular Hemoglobin 28 pg (25-35) Mean Corpuscular Hemoglobin Concent 32 g/dL (31-37) Red Cell Distribution Width 16.8 % (11.5-14.5) Platelet Count 139 x10^3/uL (140-400) Neutrophils (%) (Auto) 72 % (31-73) Lymphocytes (%) (Auto) 17 % (24-48) Monocytes (%) (Auto) 7 % (0-9) Eosinophils (%) (Auto) 3 % (0-3) Basophils (%) (Auto) 1 % (0-3) Neutrophils # (Auto) 3.4 x10^3uL (1.8-7.7) Lymphocytes # (Auto) 0.8 x10^3/uL (1.0-4.8) Monocytes # (Auto) 0.3 x10^3/uL (0.0-1.1) Eosinophils # (Auto) 0.1 x10^3/uL (0.0-0.7) Basophils # (Auto) 0.1 x10^3/uL (0.0-0.2) Prothrombin Time 14.1 SEC (11.7-14.0) Prothromb Time International Ratio 1.1 (0.8-1.1) Activated Partial Thromboplast Time 29 SEC (24-38) Sodium Level 144 mmol/L (136-145) Potassium Level 4.2 mmol/L (3.5-5.1) Chloride Level 106 mmol/L (98-107) Carbon Dioxide Level 32 mmol/L (21-32) Anion Gap 6 (6-14) Blood Urea Nitrogen 23 mg/dL (8-26) Creatinine 1.1 mg/dL (0.7-1.3) Estimated GFR (Cockcroft-Gault) 63.6 BUN/Creatinine Ratio 21 (6-20) Glucose Level 90 mg/dL (70-99) Lactic Acid Level 1.2 mmol/L (0.4-2.0) Calcium Level 9.1 mg/dL (8.5-10.1) Total Bilirubin 0.3 mg/dL (0.2-1.0) Aspartate Amino Transf (AST/SGOT) 32 U/L (15-37) Alanine Aminotransferase (ALT/SGPT) 23 U/L (16-63) Alkaline Phosphatase 69 U/L (46-116) Troponin I Quantitative 0.019 ng/mL (0.000-0.055) Total Protein 6.4 g/dL (6.4-8.2) Albumin 3.5 g/dL (3.4-5.0) Albumin/Globulin Ratio 1.2 (1.0-1.7) Urine Collection Type Unknown Urine Color Yellow Urine Clarity Clear Urine pH 7.0 Urine Specific [place] 1.010 Urine Protein Negative mg/dL (NEG-TRACE) Urine Glucose (UA) Negative mg/dL (NEG) Urine Ketones (Stick) Negative mg/dL (NEG) Urine Blood Negative (NEG) Urine Nitrite Negative (NEG) Urine Bilirubin Negative (NEG) Urine Urobilinogen Dipstick 0.2 mg/dL (0.2 mg/dL) Urine Leukocyte Esterase Trace (NEG) Urine RBC 0 /HPF (0-2) Urine WBC 1-4 /HPF (0-4) Urine Bacteria 0 /HPF (0-FEW) Urine Hyaline Casts Moderate /HPF Urine Mucus Slight /LPF Nasal Screen MRSA (PCR) Negative (Negative) Test 11/26/17 04:00 11/27/17 05:20 11/27/17 07:30 White Blood Count 8.9 x10^3/uL (4.0-11.0) 7.7 x10^3/uL (4.0-11.0) Red Blood Count 4.03 x10^6/uL (4.30-5.70) 4.11 x10^6/uL (4.30-5.70) Hemoglobin 11.1 g/dL (13.0-17.5) 11.4 g/dL (13.0-17.5) Hematocrit 34.3 % (39.0-53.0) 34.9 % (39.0-53.0) Mean Corpuscular Volume 85 fL (79-100) 85 fL (79-100) Mean Corpuscular Hemoglobin 28 pg (25-35) 28 pg (25-35) Mean Corpuscular Hemoglobin Concent 32 g/dL (31-37) 33 g/dL (31-37) Red Cell Distribution Width 16.3 % (11.5-14.5) 17.0 % (11.5-14.5) Platelet Count 137 x10^3/uL (140-400) 117 x10^3/uL (140-400) Neutrophils (%) (Auto) 84 % (31-73) 85 % (31-73) Lymphocytes (%) (Auto) 7 % (24-48) 9 % (24-48) Monocytes (%) (Auto) 8 % (0-9) 6 % (0-9) Eosinophils (%) (Auto) 0 % (0-3) 0 % (0-3) Basophils (%) (Auto) 1 % (0-3) 0 % (0-3) Neutrophils # (Auto) 7.5 x10^3uL (1.8-7.7) 6.5 x10^3uL (1.8-7.7) Lymphocytes # (Auto) 0.6 x10^3/uL (1.0-4.8) 0.7 x10^3/uL (1.0-4.8) Monocytes # (Auto) 0.7 x10^3/uL (0.0-1.1) 0.5 x10^3/uL (0.0-1.1) Eosinophils # (Auto) 0.0 x10^3/uL (0.0-0.7) 0.0 x10^3/uL (0.0-0.7) Basophils # (Auto) 0.0 x10^3/uL (0.0-0.2) 0.0 x10^3/uL (0.0-0.2) Sodium Level 144 mmol/L (136-145) 135 mmol/L (136-145) Potassium Level 3.7 mmol/L (3.5-5.1) 4.3 mmol/L (3.5-5.1) Chloride Level 106 mmol/L (98-107) 106 mmol/L (98-107) Carbon Dioxide Level 30 mmol/L (21-32) 21 mmol/L (21-32) Anion Gap 8 (6-14) 8 (6-14) Blood Urea Nitrogen 20 mg/dL (8-26) 35 mg/dL (8-26) Creatinine 1.1 mg/dL (0.7-1.3) 1.3 mg/dL (0.7-1.3) Estimated GFR (Cockcroft-Gault) 63.6 52.5 Glucose Level 91 mg/dL (70-99) 96 mg/dL (70-99) Calcium Level 9.0 mg/dL (8.5-10.1) 9.0 mg/dL (8.5-10.1) Triglycerides Level 54 mg/dL (0-150) Cholesterol Level 158 mg/dL (0-200) LDL Cholesterol, Calculated 88 mg/dL (0-100) VLDL Cholesterol, Calculated 11 mg/dL (0-40) Non-HDL Cholesterol Calculated 99 mg/dL (0-129) HDL Cholesterol 59 mg/dL (40-60) Cholesterol/HDL Ratio 2.7 Thyroid Stimulating Hormone (TSH) 6.212 uIU/mL (0.358-3.74) Free Thyroxine 1.36 ng/dL (0.76-1.46) Free Triiodothyronine (T3) pg/mL 2.78 pg/mL (2.18-3.98) Segmented Neutrophils % 46 % (35-66) Band Neutrophils % 40 % (0-9) Lymphocytes % 6 % (24-48) Monocytes % 6 % (0-10) Basophils % 1 % (0-3) Metamyelocytes % 1 % (0-0) Nucleated Red Blood Cells 1 Platelet Estimate Decreased (ADEQUATE) Anisocytosis Present Laboratory Tests Test 11/27/17 05:20 11/27/17 07:30 Sodium Level 135 mmol/L (136-145) Potassium Level 4.3 mmol/L (3.5-5.1) Chloride Level 106 mmol/L (98-107) Carbon Dioxide Level 21 mmol/L (21-32) Anion Gap 8 (6-14) Blood Urea Nitrogen 35 mg/dL (8-26) Creatinine 1.3 mg/dL (0.7-1.3) Estimated GFR (Cockcroft-Gault) 52.5 Glucose Level 96 mg/dL (70-99) Calcium Level 9.0 mg/dL (8.5-10.1) White Blood Count 7.7 x10^3/uL (4.0-11.0) Red Blood Count 4.11 x10^6/uL (4.30-5.70) Hemoglobin 11.4 g/dL (13.0-17.5) Hematocrit 34.9 % (39.0-53.0) Mean Corpuscular Volume 85 fL (79-100) Mean Corpuscular Hemoglobin 28 pg (25-35) Mean Corpuscular Hemoglobin Concent 33 g/dL (31-37) Red Cell Distribution Width 17.0 % (11.5-14.5) Platelet Count 117 x10^3/uL (140-400) Neutrophils (%) (Auto) 85 % (31-73) Lymphocytes (%) (Auto) 9 % (24-48) Monocytes (%) (Auto) 6 % (0-9) Eosinophils (%) (Auto) 0 % (0-3) Basophils (%) (Auto) 0 % (0-3) Neutrophils # (Auto) 6.5 x10^3uL (1.8-7.7) Lymphocytes # (Auto) 0.7 x10^3/uL (1.0-4.8) Monocytes # (Auto) 0.5 x10^3/uL (0.0-1.1) Eosinophils # (Auto) 0.0 x10^3/uL (0.0-0.7) Basophils # (Auto) 0.0 x10^3/uL (0.0-0.2) Segmented Neutrophils % 46 % (35-66) Band Neutrophils % 40 % (0-9) Lymphocytes % 6 % (24-48) Monocytes % 6 % (0-10) Basophils % 1 % (0-3) Metamyelocytes % 1 % (0-0) Nucleated Red Blood Cells 1 Platelet Estimate Decreased (ADEQUATE) Anisocytosis Present Medications Current Medications Iohexol (Omnipaque 300 Mg/ml) 75 ml 1X ONCE IV Last administered on 11/25/17at 16:31; Start 11/25/17 at 16:15; Stop 11/25/17 at 16:16; Status DC Info (CONTRAST GIVEN -- Rx MONITORING) 1 each PRN DAILY PRN MC SEE COMMENTS; Start 11/25/17 at 16:15; Stop 11/27/17 at 16:14 Acetaminophen (Tylenol) 650 mg PRN Q6HRS PRN PO FEVER; Start 11/25/17 at 16:45 Ondansetron HCl (Zofran) 4 mg PRN Q6HRS PRN IV NAUSEA/VOMITING 1ST CHOICE; Start 11/25/17 at 16:45 Morphine Sulfate (Morphine Sulfate) 2 mg PRN Q2HR PRN IV MODERATE TO SEVERE PAIN Last administered on 11/27/17at 11:39; Start 11/25/17 at 16:45 Tramadol HCl (Ultram) 50 mg PRN Q6HRS PRN PO MILD TO MODERATE PAIN; Start 11/25 at 16:45 Hydralazine HCl (Apresoline Inj) 10 mg PRN Q4HRS PRN IVP ELEVATED BP, SEE COMMENTS; Start 11/25/17 at 16:45 Docusate Sodium (Colace) 100 mg PRN DAILY PRN PO HARD STOOLS; Start 11/25/17 at 16:45 Enoxaparin Sodium (Lovenox 40mg Syringe) 40 mg Q24H SQ ; Start 11/25/17 at 17:00 ; Stop 11/27/17 at 14:14; Status DC Aspirin (Aspirin) 300 mg DAILY CA Last administered on 11/27/17at 10:10; Start 11/25/17 at 17:00 Sodium Chloride 1,000 ml @ 75 mls/hr [id number] IV Last administered on at 05:56; Start 11/25/17 at 16:45; Stop 11/26/17 at 13:12; Status DC Lorazepam (Ativan) 0.5 mg PRN Q4HRS PRN IV ANXIETY / AGITATION Last administered on 11/26/17at 00:16; Start 11/25/17 at 21:30; Stop 11/26/17 at 09:24 ; Status DC Haloperidol Lactate (Haldol Inj) 1 mg PRN Q4HRS PRN IVP AGITATION; Start at 21:30 Lorazepam (Ativan) 0.5 mg PRN DAILY PRN IV ANXIETY / AGITATION; Start 11/26/17 at 09:30; Stop 11/26/17 at 13:13; Status DC Amino Acids/ Glycerin/ Electrolytes 1,000 ml @ 80 mls/hr [id number] IV Last administered on 11/27/17at 01:25; Start 11/26/17 at 13:15 Simvastatin (Zocor) 10 mg QHS PO ; Start 11/26/17 at 21:00 Acetaminophen (Tylenol Supp) 650 mg PRN Q6HRS PRN CA MILD PAIN / TEMP Last administered on 11/27/17at 11:37; Start 11/27/17 at 11:30 Enoxaparin Sodium (Lovenox 30mg Syringe) 30 mg Q24H SQ ; Start 11/27/17 at 17:00 Vitals/I & O Vital Sign - Last 24 Hours 11/26/17 11/26/17 11/27/17 11/27/17 15:33 19:37 03:45 07:54 Temp 100.9 101.8 99.0 100.9 101.8 99.0 Pulse 64 70 69 Resp 18 16 20 12 B/P (MAP) 117/51 (73) 121/70 (87) 136/66 (89) Pulse Ox 94 91 90 O2 Delivery Room Air Room Air Room Air Room Air 11/27/17 11/27/17 11:03 11:39 Temp 100.2 100.2 Pulse 78 Resp 18 20 B/P (MAP) 102/61 (75) Pulse Ox 85 88 O2 Delivery Room Air Nasal Cannula O2 Flow Rate 20.0 Intake and Output 11/26/17 11/26/17 11/27/17 15:00 23:00 07:00 Intake Total 0 ml 0 ml Balance 0 ml 0 ml LILLI BENÍTEZ MD Nov 27, 2017 14:40
[2017-11-27 15:52] VITALS: BP 114/68
[2017-11-27] MEDS: ENOXAPARIN 30 MG/0.3 ML SYRINGE. SQ SCH (16:53)
[2017-11-27] MEDS: SIMVASTATIN 10 MG TABLET PO SCH (19:33)
[2017-11-27 19:37] VITALS: BP 121/78
[2017-11-28] MEDS: AMINO AC 3%/ELECTROLYTE/GLYCER 1,000 ML IV SCH ×2 (03:00→15:15)
[2017-11-28] MEDS: MORPHINE SULFATE 2 MG/ML DISP.SYRIN. IV PRN ×4 (03:30→18:12)
[2017-11-28] MEDS: ASPIRIN 300 MG SUPP.RECT PR SCH (08:38)
--- NOTE | 2017-11-28 09:21 | PDOC ---
PROGRESS NOTES Chief Complaint Chief Complaint acute encephalopathy NOS baseline mild dementia bl hearing loss PPM with afib wo ac h/o diverticulitis with gib normocytic anemia thrombocytopenia AMS, metabolic encephalopathy worsened s/p ativan in hosp bl lung 3-5mm nodule with remote smoking history small brain aneurysm, likely benign palliative care consulted, hospice consulted History of Present Illness History of Present Illness neuro following and CT head neg melgar metabolic dyscrasias swallow eval when more awake IV fluid nutrition support, neurocheck q4h PTOT when able try to allow to awaken ROS: not talkative Vitals Vitals Vital Signs Date Time Temp Pulse Resp B/P (MAP) Pulse Ox O2 Delivery O2 Flow Rate FiO2 11/28/17 07:50 Room Air 11/28/17 04:00 16 11/28/17 03:26 74 88 11/27/17 19:37 97.7 121/78 (92) 97.7 11/27/17 11:39 20.0 Physical Exam Physical Exam unresponsive , post ativan x2 overnight General: mild distress Heart: Regular rate, Normal S1, Normal S2 Lungs: Clear Abdomen: Normal bowel sounds, Soft Extremities: No clubbing, No cyanosis Skin: No rashes Labs LABS CT of the head without contrast, 11/26/2017: HISTORY: Mental status change Comparison is made to yesterday's study. There is moderate cerebral atrophy. There are moderate patchy deep white matter lucencies compatible with chronic ischemic change. The ventricles are within normal limits in size. There is no evidence of acute intracranial hemorrhage or mass effect. There is calcific plaquing of the distal internal carotid and vertebrobasilar arteries. IMPRESSION: 1. Chronic findings as described above. 2. No acute intracranial abnormality is detected with no significant change since yesterday's study. Electronically signed by: Odilon De La Garza MD (11/26/2017 1:22 PM) [facility] Assessment and Plan Assessmemt and Plan Problems Medical Problems: (1) Acute focal neurological deficit Status: Acute (2) Anemia Status: Acute (3) Atrial fibrillation Status: Acute (4) Dementia Status: Acute Comment Review of Relevant I have reviewed the following items kendell (where applicable) has been applied. Labs Laboratory Tests Test 11/27/17 05:20 11/27/17 07:30 Sodium Level 135 mmol/L (136-145) Potassium Level 4.3 mmol/L (3.5-5.1) Chloride Level 106 mmol/L (98-107) Carbon Dioxide Level 21 mmol/L (21-32) Anion Gap 8 (6-14) Blood Urea Nitrogen 35 mg/dL (8-26) Creatinine 1.3 mg/dL (0.7-1.3) Estimated GFR (Cockcroft-Gault) 52.5 Glucose Level 96 mg/dL (70-99) Calcium Level 9.0 mg/dL (8.5-10.1) White Blood Count 7.7 x10^3/uL (4.0-11.0) Red Blood Count 4.11 x10^6/uL (4.30-5.70) Hemoglobin 11.4 g/dL (13.0-17.5) Hematocrit 34.9 % (39.0-53.0) Mean Corpuscular Volume 85 fL (79-100) Mean Corpuscular Hemoglobin 28 pg (25-35) Mean Corpuscular Hemoglobin Concent 33 g/dL (31-37) Red Cell Distribution Width 17.0 % (11.5-14.5) Platelet Count 117 x10^3/uL (140-400) Neutrophils (%) (Auto) 85 % (31-73) Lymphocytes (%) (Auto) 9 % (24-48) Monocytes (%) (Auto) 6 % (0-9) Eosinophils (%) (Auto) 0 % (0-3) Basophils (%) (Auto) 0 % (0-3) Neutrophils # (Auto) 6.5 x10^3uL (1.8-7.7) Lymphocytes # (Auto) 0.7 x10^3/uL (1.0-4.8) Monocytes # (Auto) 0.5 x10^3/uL (0.0-1.1) Eosinophils # (Auto) 0.0 x10^3/uL (0.0-0.7) Basophils # (Auto) 0.0 x10^3/uL (0.0-0.2) Segmented Neutrophils % 46 % (35-66) Band Neutrophils % 40 % (0-9) Lymphocytes % 6 % (24-48) Monocytes % 6 % (0-10) Basophils % 1 % (0-3) Metamyelocytes % 1 % (0-0) Nucleated Red Blood Cells 1 Platelet Estimate Decreased (ADEQUATE) Anisocytosis Present Medications Current Medications Iohexol (Omnipaque 300 Mg/ml) 75 ml 1X ONCE IV Last administered on 11/25/17at 16:31; Start 11/25/17 at 16:15; Stop 11/25/17 at 16:16; Status DC Info (CONTRAST GIVEN -- Rx MONITORING) 1 each PRN DAILY PRN MC SEE COMMENTS; Start 11/25/17 at 16:15; Stop 11/27/17 at 16:14; Status DC Acetaminophen (Tylenol) 650 mg PRN Q6HRS PRN PO FEVER; Start 11/25/17 at 16:45 Ondansetron HCl (Zofran) 4 mg PRN Q6HRS PRN IV NAUSEA/VOMITING 1ST CHOICE; Start 11/25/17 at 16:45 Morphine Sulfate (Morphine Sulfate) 2 mg PRN Q2HR PRN IV MODERATE TO SEVERE PAIN Last administered on 11/28/17at 03:30; Start 11/25/17 at 16:45 Tramadol HCl (Ultram) 50 mg PRN Q6HRS PRN PO MILD TO MODERATE PAIN; Start 11/25 at 16:45 Hydralazine HCl (Apresoline Inj) 10 mg PRN Q4HRS PRN IVP ELEVATED BP, SEE COMMENTS; Start 11/25/17 at 16:45 Docusate Sodium (Colace) 100 mg PRN DAILY PRN PO HARD STOOLS; Start 11/25/17 at 16:45 Enoxaparin Sodium (Lovenox 40mg Syringe) 40 mg Q24H SQ ; Start 11/25/17 at 17:00 ; Stop 11/27/17 at 14:14; Status DC Aspirin (Aspirin) 300 mg DAILY OK Last administered on 11/27/17at 10:10; Start 11/25/17 at 17:00 Sodium Chloride 1,000 ml @ 75 mls/hr [id number] IV Last administered on at 05:56; Start 11/25/17 at 16:45; Stop 11/26/17 at 13:12; Status DC Lorazepam (Ativan) 0.5 mg PRN Q4HRS PRN IV ANXIETY / AGITATION Last administered on 11/26/17at 00:16; Start 11/25/17 at 21:30; Stop 11/26/17 at 09:24 ; Status DC Haloperidol Lactate (Haldol Inj) 1 mg PRN Q4HRS PRN IVP AGITATION; Start at 21:30 Lorazepam (Ativan) 0.5 mg PRN DAILY PRN IV ANXIETY / AGITATION; Start 11/26/17 at 09:30; Stop 11/26/17 at 13:13; Status DC Amino Acids/ Glycerin/ Electrolytes 1,000 ml @ 80 mls/hr [id number] IV Last administered on 11/28/17at 03:00; Start 11/26/17 at 13:15 Simvastatin (Zocor) 10 mg QHS PO ; Start 11/26/17 at 21:00 Acetaminophen (Tylenol Supp) 650 mg PRN Q6HRS PRN OK MILD PAIN / TEMP Last administered on 11/27/17at 11:37; Start 11/27/17 at 11:30 Enoxaparin Sodium (Lovenox 30mg Syringe) 30 mg Q24H SQ ; Start 11/27/17 at 17:00 Vitals/I & O Vital Sign - Last 24 Hours 11/27/17 11/27/17 11/27/17 11/27/17 11:03 11:39 15:52 17:38 Temp 100.2 96.8 100.2 96.8 Pulse 78 68 Resp 18 20 16 20 B/P (MAP) 102/61 (75) 114/68 (83) Pulse Ox 85 88 94 94 O2 Delivery Room Air Nasal Cannula Room Air Room Air O2 Flow Rate 20.0 11/27/17 11/27/17 11/27/17 11/27/17 18:08 19:37 22:41 23:45 Temp 97.7 97.7 Pulse 58 65 Resp 16 16 16 B/P (MAP) 121/78 (92) Pulse Ox 94 91 93 O2 Delivery Room Air Room Air Room Air 11/28/17 11/28/17 11/28/17 11/28/17 03:26 03:30 04:00 07:50 Pulse 74 Resp 16 16 16 Pulse Ox 88 O2 Delivery Room Air Room Air Room Air Room Air Intake and Output 11/27/17 11/27/17 11/28/17 15:00 23:00 07:00 Intake Total 0 ml 0 ml Balance 0 ml 0 ml VIA STRANGE MD Nov 28, 2017 09:21
--- NOTE | 2017-11-28 09:41 | CARD ---
MR#: [id number] Date of Study: 11/27/2017 Ordering Physician: DAWSON LONG, Referring Physician: DAWSON LONG Tech: Nasrin Cleveland RDCS APPROVED REPORT EXAM: Two-dimensional and M-mode echocardiogram with Doppler and color Doppler. Other Information Quality : Good INDICATION CVA/TIA 2D DIMENSIONS RVDd2.8 (2.9-3.5cm)Left Atrium(2D)3.3 (1.6-4.0cm) IVSd0.9 (0.7-1.1cm)Aortic Root(2D)2.7 (2.0-3.7cm) LVDd3.7 (3.9-5.9cm)LVOT Diameter1.9 (1.8-2.4cm) PWd0.9 (0.7-1.1cm)LVDs2.5 (2.5-4.0cm) FS (%) 32.6 %SV36.8 ml LVEF(%)61.8 (>50%) Aortic Valve AoV Peak Goyo.173.1cm/sAoV VTI27.8cm AO Peak GR.12.0mmHgLVOT VTI 19.48cm AO Mean GR.6mmHgAVA (VTI)2.00cm2 Mitral Valve MV E Accdopao73.1cm/sMV DECEL [id number] MV A Wlkveyrp43.3cm/sE/A Ratio1.6 TDI Lateral E' P. V3.60cm/sMedial E' P. V10.10cm/s E/Lateral E'23.4E/Medial E'8.3 Tricuspid Valve TR P. Xetfdbcf447ts/sRAP JZCHJYZP8ylWa TR Peak Gr.95wvGtLOOU67zeNu Pulmonary Vein S1 Cdcdeafw45.5cm/sS2 Yhoempay82.56cm/s D2 Ixzcvgct21.6cm/s LEFT VENTRICLE The left ventricle is normal size. There is normal left ventricular wall thickness. The left ventricu lar systolic function is normal. The Ejection Fraction is 60-65%. There is normal LV segmental wall m otion. RIGHT VENTRICLE The right ventricle is normal size. The right ventricular systolic function is normal. There is a pac emaker lead in the right ventricle. ATRIA The left atrium size is normal. The right atrium size is normal. A pacemaker is seen in the right atr ium consistent with history. The interatrial septum is intact with no evidence for an atrial septal d efect or patent foramen ovale as noted on 2-D or Doppler imaging. AORTIC VALVE The aortic valve is calcified but opens well. Doppler and Color Flow revealed no significant aortic r egurgitation. There is no significant aortic valvular stenosis. MITRAL VALVE The mitral valve is calcified but opens well. There is no evidence of mitral valve prolapse. There is no mitral valve stenosis. Doppler and Color-flow revealed trace mitral regurgitation. TRICUSPID VALVE The tricuspid valve is normal in structure and function. Doppler and Color Flow revealed mild tricusp id regurgitation. There is mild to moderate pulmonary hypertension. The PA pressure was estimated at 42 mmHg. There is no tricuspid valve stenosis. PULMONIC VALVE The pulmonic valve is not well visualized. Doppler and Color Flow revealed trace pulmonic valvular re gurgitation. There is no pulmonic valvular stenosis. GREAT VESSELS The aortic root is normal in size. The ascending aorta is normal in size. The IVC is dilated and noman apses >50% with inspiration. PERICARDIAL EFFUSION There is no evidence of significant pericardial effusion. Critical Notification Critical Value: No <Conclusion> The left ventricular systolic function is normal. The Ejection Fraction is 60-65%. There is normal LV segmental wall motion. There is a pacemaker lead in the right ventricle. Trace mitral regurgitation. Mild tricuspid regurgitation. There is mild to moderate pulmonary hypertension. The PA pressure was estimated at 42 mmHg. There is no evidence of significant pericardial effusion. Signed by : Paul Suazo, Electronically Approved : 11/28/2017 09:40:15
[2017-11-28 11:12] VITALS: BP 119/52
--- NOTE | 2017-11-28 15:25 | PDOC2 ---
PALLIATIVE CARE Palliative Care Note Palliative Care Consult requested to address plan of care Medical Assessment per record. Medical Problems: (1) Acute focal neurological deficit (2) Anemia (3) Atrial fibrillation (4) Dementia Patient unresponsive to verbal stimuli. Extremities cool. Ativan given x2 doses for restlessness 36 and 48 hours ago. Spoke with son Bereket and friend [facility] ---Ivon here. Reviewed medical condition. Oxygen saturation down to 86%. Will discontinue ProcalAmine and medications not adding to comfort Per Bereket family coming from out of town to take care of patient on Tuesday or . Hospice House would be appropriate. Family would prefer home with Hospice. Patient having 15-20 sec periods of apnea. Will change to comfort meds and d/c fluids, monitor overnight. Consider IP Hospice with Hospice or monitor for comfort here until family can arrange care giving. Confirmed DNR/DNI Outside the Hospital DNR/DNI signed. NADINE KING Nov 28, 2017 15:25
[2017-11-28] MEDS: ENOXAPARIN 30 MG/0.3 ML SYRINGE. SQ SCH (16:19)
[2017-11-28 20:11] VITALS: BP 74/52
[2017-11-29] MEDS: MORPHINE SULFATE 2 MG/ML DISP.SYRIN. IV PRN ×2 (01:57→08:32)
[2017-11-29 07:00] VITALS: BP 97/53
[2017-11-29] MEDS ORDERED: SCOPOLAMINE 1.5MG PATCH. TD SCH (09:00)
[2017-11-29] MEDS ORDERED: MORPHINE SULFATE 20 MG/ML CONC SOLUTION. SL PRN (09:00)
[2017-11-29] MEDS: LORazepam INTENSOL 2 MG/ML ORAL.CONC SL PRN ×2 (10:26→14:49)
[2017-11-29] MEDS ORDERED: LORazepam INTENSOL 2 MG/ML ORAL.CONC SL PRN (10:30)
--- NOTE | 2017-11-29 10:30 | PDOC ---
PROGRESS NOTES Chief Complaint Chief Complaint acute encephalopathy NOS baseline mild dementia bl hearing loss PPM with afib wo ac h/o diverticulitis with gib normocytic anemia thrombocytopenia AMS, metabolic encephalopathy worsened s/p ativan in hosp bl lung 3-5mm nodule with remote smoking history small brain aneurysm, likely benign palliative care consulted, hospice consulted History of Present Illness History of Present Illness neuro following and CT head neg melgar metabolic dyscrasias IV fluid nutrition support,D/C PALLIATIVE CARE SL MORPHINE 10 MG Q 3 HRS PRN 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 try to allow to awaken ROS: not talkative, appears comfortable Vitals Vitals Vital Signs Date Time Temp Pulse Resp B/P (MAP) Pulse Ox O2 Delivery O2 Flow Rate FiO2 11/29/17 07:00 117 14 97/53 (68) 82 Room Air 11/28/17 20:11 100.4 100.4 Physical Exam Physical Exam unresponsive , post ativan x2 overnight General: mild distress Heart: Regular rate, Normal S1, Normal S2 Lungs: Clear Abdomen: Normal bowel sounds, Soft Extremities: No clubbing, No cyanosis, No edema Skin: No rashes Labs LABS CTA head and neck with contrast 11/25/2017 4:20 PM INDICATION: Code stroke. Slurred speech and facial droop. Focal weakness. COMPARISON: CT head 11/25/2017 TECHNIQUE: Multiple axial CT images of the head were obtained without intravenous contrast. Multiple axial CT images of the head and neck were obtained after the intravenous administration of 75 mL Omnipaque 300. Coronal and sagittal reformats are provided. Maximum intensity projection images of the intracranial and cervical vasculature are provided. FINDINGS: Nonvascular findings: Youth Leader image reveals no significant abnormality. Scalp and calvaria are intact. The ventricles, sulci and basal cisterns are normal in appearance. There is normal arceo-white matter differentiation. Few scattered foci of hypoattenuation in the periventricular and subcortical white matter are suggestive of chronic small vessel ischemic changes. There is no hydrocephalus. There is no acute intracranial hemorrhage. There is no mass, mass effect or midline shift. Posterior fossa is normal in appearance. Sella and suprasellar cistern appear normal. Orbits are normal in appearance with exception of bilateral lens replacement. Paranasal sinuses are well aerated. Mastoid air cells are well aerated. There are no suspicious enhancing intracranial lesions. Nasopharynx, oropharynx and hypopharynx appear normal. Glottic structures appear intact. Laryngeal cartilages are intact. Thyroid gland is normal in appearance. There are no pathologically enlarged cervical lymph nodes. Parotid glands and submandibular glands appear intact. Weatherization Crew Leader space and parapharyngeal spaces appear intact. There is moderate centrilobular pulmonary emphysema. There is a 3 mm solid noncalcified pulmonary nodule in the left upper lobe. Subpleural nodular densities are identified along the right lung apex which may represent scarring. For example, there is a 5 mm spiculated subpleural nodule (series 3, image 75). There is mild cervical spondylosis, most prominent at C4-C5 with minimal retrolisthesis of C4 on C5. Vascular findings: Visualized portions of the pulmonary arteries are patent. Ascending thoracic aorta is normal in caliber. Origin of the brachiocephalic vessels appear widely patent. Normal three-vessel aortic arch is visualized. Origin of the right common carotid artery is normal. Right common carotid artery is normal in course and caliber. There is minor atherosclerotic calcination of the right carotid bifurcation without significant stenosis of the proximal right internal carotid artery or external carotid artery. Left common carotid artery is normal in course and caliber. 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 Origin of the external carotid artery is widely patent. Right vertebral artery is normal in course and caliber with moderate stenosis at the origin. Left vertebral artery is normal in course and caliber an patent at the origin. Intracranial segments of internal carotid arteries are normal in course and caliber with exception of mild irregularity involving the cavernous segments, likely secondary to atheromatous plaque. Middle cerebral arteries are normal in course and caliber with patent sylvian branches. A1 segments are present and normal in appearance. Anterior cerebral arteries are normal in course and caliber. Left vertebral artery is dominant. Right vertebral artery terminates in the right posterior inferior cerebellar artery territory. Vertebral basilar junction is normal. Basilar artery is normal in course and caliber. Anterior inferior cerebellar arteries and superior cerebellar arteries are normal. P1 segments of the posterior cerebral arteries are patent. Posterior cerebral arteries are normal in course and caliber. 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 Opacified portions of the deep venous sinuses appear patent including the superior sagittal sinus. IMPRESSION: 1. No acute intracranial hemorrhage. 2. 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 There is no significant right carotid stenosis. There is moderate stenosis of the origin of the right vertebral artery. Right vertebral artery terminates in the posterior inferior cerebellar artery distribution. 3. 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 4. PQRS statement: Carotid stenosis calculations are performed utilizing NASCET Criteria. 5. 3 mm solid noncalcified pulmonary nodule in the left upper lobe. 5 mm solid noncalcified spiculated nodule in the right upper lobe along the right lung apex. A six-month follow-up CT chest may be of benefit. Electronically signed by: Erasmo Cheung MD (11/25/2017 4:51 PM) [place] [id number] DICTATED and SIGNED BY: ERASMO CHEUNG MD DATE: 11/25/[address] of the head without contrast, 11/26/2017: HISTORY: Mental status change Comparison is made to yesterday's study. There is moderate cerebral atrophy. There are moderate patchy deep white matter lucencies compatible with chronic ischemic change. The ventricles are within normal limits in size. There is no evidence of acute intracranial hemorrhage or mass effect. There is calcific plaquing of the distal internal carotid and vertebrobasilar arteries. IMPRESSION: 1. Chronic findings as described above. 2. No acute intracranial abnormality is detected with no significant change since yesterday's study. Electronically signed by: Odilon De La Garza MD (11/26/2017 1:22 PM) [facility] DICTATED and SIGNED BY: ODILON DE LA GARZA MD DATE: 11/26/17 1317 Assessment and Plan Assessmemt and Plan Problems Medical Problems: (1) Acute focal neurological deficit Status: Acute (2) Anemia Status: Acute (3) Atrial fibrillation Status: Acute (4) Dementia Status: Acute Comment Review of Relevant I have reviewed the following items kendell (where applicable) has been applied. Labs Microbiology 11/25/17 Urine Culture - Final, Complete 11/25/17 Urine Culture Result 1 (MAINOR) - Final, Complete Medications Current Medications Iohexol (Omnipaque 300 Mg/ml) 75 ml 1X ONCE IV Last administered on 11/25/17at 16:31; Start 11/25/17 at 16:15; Stop 11/25/17 at 16:16; Status DC Info (CONTRAST GIVEN -- Rx MONITORING) 1 each PRN DAILY PRN MC SEE COMMENTS; Start 11/25/17 at 16:15; Stop 11/27/17 at 16:14; Status DC Acetaminophen (Tylenol) 650 mg PRN Q6HRS PRN PO FEVER; Start 11/25/17 at 16:45 Ondansetron HCl (Zofran) 4 mg PRN Q6HRS PRN IV NAUSEA/VOMITING 1ST CHOICE; Start 11/25/17 at 16:45 Morphine Sulfate (Morphine Sulfate) 2 mg PRN Q2HR PRN IV MODERATE TO SEVERE PAIN Last administered on 11/29/17at 01:57; Start 11/25/17 at 16:45 Tramadol HCl (Ultram) 50 mg PRN Q6HRS PRN PO MILD TO MODERATE PAIN; Start 11/25 at 16:45; Stop 11/28/17 at 18:12; Status DC Hydralazine HCl (Apresoline Inj) 10 mg PRN Q4HRS PRN IVP ELEVATED BP, SEE COMMENTS; Start 11/25/17 at 16:45 Docusate Sodium (Colace) 100 mg PRN DAILY PRN PO HARD STOOLS; Start 11/25/17 at 16:45 Enoxaparin Sodium (Lovenox 40mg Syringe) 40 mg Q24H SQ ; Start 11/25/17 at 17:00 ; Stop 11/27/17 at 14:14; Status DC Aspirin (Aspirin) 300 mg DAILY RI Last administered on 11/27/17at 10:10; Start 11/25/17 at 17:00; Stop 11/28/17 at 18:12; Status DC Sodium Chloride 1,000 ml @ 75 mls/hr [id number] IV Last administered on at 05:56; Start 11/25/17 at 16:45; Stop 11/26/17 at 13:12; Status DC Lorazepam (Ativan) 0.5 mg PRN Q4HRS PRN IV ANXIETY / AGITATION Last administered on 11/26/17at 00:16; Start 11/25/17 at 21:30; Stop 11/26/17 at 09:24 ; Status DC Haloperidol Lactate (Haldol Inj) 1 mg PRN Q4HRS PRN IVP AGITATION; Start at 21:30 Lorazepam (Ativan) 0.5 mg PRN DAILY PRN IV ANXIETY / AGITATION; Start 11/26/17 at 09:30; Stop 11/26/17 at 13:13; Status DC Amino Acids/ Glycerin/ Electrolytes 1,000 ml @ 80 mls/hr [id number] IV Last administered on 11/28/17at 03:00; Start 11/26/17 at 13:15; Stop 11/28/17 at 17:44 ; Status DC Simvastatin (Zocor) 10 mg QHS PO ; Start 11/26/17 at 21:00; Stop 11/28/17 at 17: 05; Status DC Acetaminophen (Tylenol Supp) 650 mg PRN Q6HRS PRN RI MILD PAIN / TEMP Last administered on 11/27/17at 11:37; Start 11/27/17 at 11:30; Stop 11/28/17 at 17:05 ; Status DC Enoxaparin Sodium (Lovenox 30mg Syringe) 30 mg Q24H SQ ; Start 11/27/17 at 17:00 ; Stop 11/28/17 at 18:12; Status DC Morphine Sulfate (Roxanol Conc) 6 mg PRN Q3HRS PRN SL PAIN Last administered on 11/29/17at 09:01; Start 11/29/17 at 09:00 Scopolamine (Transderm-Scop) 1 patch Q3DAYS TD Last administered on 11/29/17at 10:26; Start 11/29/17 at 09:00 Lorazepam (Ativan Intensol) 1 mg PRN Q3HRS PRN SL ANXIETY / AGITATION Last administered on 11/29/17at 10:26; Start 11/29/17 at 10:15 Lorazepam (Ativan Intensol) 2 mg PRN Q3HRS PRN SL ANXIETY / AGITATION; Start at 10:30 Vitals/I & O Vital Sign - Last 24 Hours 11/28/17 11/28/17 11/28/17 11/28/17 11:12 14:44 19:48 20:11 Temp 98.5 100.4 98.5 100.4 Pulse 61 87 Resp 12 12 B/P (MAP) 119/52 (74) 74/52 (59) Pulse Ox 86 87 O2 Delivery Room Air Room Air Room Air Room Air 11/28/17 11/29/17 11/29/17 11/29/17 23:55 01:57 02:56 07:00 Pulse 117 Resp 10 14 B/P (MAP) 97/53 (68) Pulse Ox 82 O2 Delivery Room Air Room Air Room Air Room Air Intake and Output 11/28/17 11/28/17 11/29/17 15:00 23:00 07:00 Intake Total 1000 ml 0 ml Balance 1000 ml 0 ml IVA STRANGE MD Nov 29, 2017 10:30
[2017-11-29] MEDS: MORPHINE SULFATE 20 MG/ML CONC SOLUTION. SL PRN ×2 (11:13→13:34)
--- NOTE | 2017-11-29 11:54 | PDOC2 ---
PALLIATIVE CARE Palliative Care Note Palliative Care Patient restless at times. Morphine IV changed to Roxanol. No longer has IV access. Ativan ordered. Scopolamine patch ordered. [facility] and his sister at bedside. Plan was to keep patient here. [facility] shared DPOA for health care lives in [place]. Requested copy of document if this could be faxed. VS 82/45 oxygen sat 81%. Patient declining. [facility] appreciative --will keep patient here. 1030 [facility] and his sister have decided that would like to move patient to [facility]. Concern voiced about decline--moving patient. Julius stated he spoke with Bereket-son who was in agreement. Spoke with Ivon [facility] from [facility] per phone x 2. Will be re-evaluated by [facility]. [facility]; plan to transfer patient to [facility] today. Julius and his sister aware that patient is declining and at risk for dying enroute. Julius states he has spoke to Bereket and he is aware. Outside the Hospital DNR/DNI signed by son Bereket yesterday. Dr Mckeon spoke with family as well and discussed plan. Kayy LAY aware and assisting in transfer plan. NADINE KING Nov 29, 2017 11:54
--- NOTE | 2017-11-29 13:30 | PDOC3 ---
Discharge Summary Date of Admission: Nov 25, 2017 Date of Discharge: Nov 29, 2017 Follow-Up: 1-2 days Admitting Diagnosis comment: discharge diagnosis Chief Complaint acute encephalopathy NOS baseline mild dementia bl hearing loss PPM with afib wo ac h/o diverticulitis with gib normocytic anemia thrombocytopenia AMS, metabolic encephalopathy worsened s/p ativan in hosp bl lung 3-5mm nodule with remote smoking history small brain aneurysm, likely benign palliative care consulted, hosp[facility] History of Present Illness History of Present Illness neuro following and CT head neg melgar metabolic dyscrasias IV fluid nutrition support,D/C PALLIATIVE CARE SL MORPHINE 10 MG Q 3 HRS PRN 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 try to allow to awaken ROS: not talkative, appears comfortable Vitals Vitals Vital Signs Date Time Temp Pulse Resp B/P (MAP) Pulse Ox O2 Delivery O2 Flow Rate FiO2 11/29/17 07:00 117 14 97/53 (68) 82 Room Air 11/28/17 20:11 100.4 100.4 Physical Exam Physical Exam unresponsive , post ativan x2 overnight General: mild distress Heart: Regular rate, Normal S1, Normal S2 Lungs: Clear Abdomen: Normal bowel sounds, Soft Extremities: No clubbing, No cyanosis, No edema Skin: No rashes FINAL DIAGNOSIS Problems Medical Problems: (1) Acute focal neurological deficit Status: Acute (2) Anemia Status: Acute (3) Atrial fibrillation Status: Acute (4) Dementia Status: Acute Brief Hospital Course Mr. Ruggiero is a 87 old [sex] who presented with [ ] Discharge Medications Current Medications Iohexol (Omnipaque 300 Mg/ml) 75 ml 1X ONCE IV Last administered on 11/25/17at 16:31; Start 11/25/17 at 16:15; Stop 11/25/17 at 16:16; Status DC Info (CONTRAST GIVEN -- Rx MONITORING) 1 each PRN DAILY PRN MC SEE COMMENTS; Start 11/25/17 at 16:15; Stop 11/27/17 at 16:14; Status DC Acetaminophen (Tylenol) 650 mg PRN Q6HRS PRN PO FEVER; Start 11/25/17 at 16:45 Ondansetron HCl (Zofran) 4 mg PRN Q6HRS PRN IV NAUSEA/VOMITING 1ST CHOICE; Start 11/25/17 at 16:45 Morphine Sulfate (Morphine Sulfate) 2 mg PRN Q2HR PRN IV MODERATE TO SEVERE PAIN Last administered on 11/29/17at 01:57; Start 11/25/17 at 16:45 Tramadol HCl (Ultram) 50 mg PRN Q6HRS PRN PO MILD TO MODERATE PAIN; Start 11/25 at 16:45; Stop 11/28/17 at 18:12; Status DC Hydralazine HCl (Apresoline Inj) 10 mg PRN Q4HRS PRN IVP ELEVATED BP, SEE COMMENTS; Start 11/25/17 at 16:45 Docusate Sodium (Colace) 100 mg PRN DAILY PRN PO HARD STOOLS; Start 11/25/17 at 16:45 Enoxaparin Sodium (Lovenox 40mg Syringe) 40 mg Q24H SQ ; Start 11/25/17 at 17:00 ; Stop 11/27/17 at 14:14; Status DC Aspirin (Aspirin) 300 mg DAILY [place] Last administered on 11/27/17at 10:10; Start 11/25/17 at 17:00; Stop 11/28/17 at 18:12; Status DC Sodium Chloride 1,000 ml @ 75 mls/hr [id number] IV Last administered on at 05:56; Start 11/25/17 at 16:45; Stop 11/26/17 at 13:12; Status DC Lorazepam (Ativan) 0.5 mg PRN Q4HRS PRN IV ANXIETY / AGITATION Last administered on 11/26/17at 00:16; Start 11/25/17 at 21:30; Stop 11/26/17 at 09:24 ; Status DC Haloperidol Lactate (Haldol Inj) 1 mg PRN Q4HRS PRN IVP AGITATION; Start at 21:30 Lorazepam (Ativan) 0.5 mg PRN DAILY PRN IV ANXIETY / AGITATION; Start 11/26/17 at 09:30; Stop 11/26/17 at 13:13; Status DC Amino Acids/ Glycerin/ Electrolytes 1,000 ml @ 80 mls/hr [id number] IV Last administered on 11/28/17at 03:00; Start 11/26/17 at 13:15; Stop 11/28/17 at 17:44 ; Status DC Simvastatin (Zocor) 10 mg QHS PO ; Start 11/26/17 at 21:00; Stop 11/28/17 at 17: 05; Status DC Acetaminophen (Tylenol Supp) 650 mg PRN Q6HRS PRN [place] MILD PAIN / TEMP Last administered on 11/27/17at 11:37; Start 11/27/17 at 11:30; Stop 11/28/17 at 17:05 ; Status DC Enoxaparin Sodium (Lovenox 30mg Syringe) 30 mg Q24H SQ ; Start 11/27/17 at 17:00 ; Stop 11/28/17 at 18:12; Status DC Morphine Sulfate (Roxanol Conc) 6 mg PRN Q3HRS PRN SL PAIN Last administered on 11/29/17at 09:01; Start 11/29/17 at 09:00; Stop 11/29/17 at 11:05; Status DC Scopolamine (Transderm-Scop) 1 patch Q3DAYS TD Last administered on 11/29/17at 10:26; Start 11/29/17 at 09:00 Lorazepam (Ativan Intensol) 1 mg PRN Q3HRS PRN SL ANXIETY / AGITATION Last administered on 11/29/17at 10:26; Start 11/29/17 at 10:15 Lorazepam (Ativan Intensol) 2 mg PRN Q3HRS PRN SL ANXIETY / AGITATION; Start at 10:30 Morphine Sulfate (Roxanol Conc) 10 mg PRN Q2HRS PRN SL PAIN Last administered on 11/29/17at 11:13; Start 11/29/17 at 11:00 Vital Signs Vital Signs Date Time Temp Pulse Resp B/P (MAP) Pulse Ox O2 Delivery O2 Flow Rate FiO2 11/29/17 07:00 117 14 97/53 (68) 82 Room Air 11/28/17 20:11 100.4 100.4 Allergies Allergies Coded Allergies Type Severity Reaction Last Updated Verified No Known Drug Allergies 11/25/17 No Disposition/Orders: Other (to [facility]) Patient Instructions d/c planning 40 min IVA STRANGE MD Nov 29, 2017 13:30
== END 2017-11-29 15:05 | disposition hospice, home (50) | DRG 91 ==
LOC: ER 15:10 → 1 WEST ICU 15:56 → 6 SOUTH 11-26 10:43
PROVIDERS: ADMIT Internal Medicine; ATTEND Internal Medicine
DX: I67.1 Cerebral aneurysm, nonruptured (principal); G93.41 Metabolic encephalopathy; D69.6 Thrombocytopenia, unspecified; D64.9 Anemia, unspecified; F03.90 Unspecified dementia, unspecified severity, without behavioral disturbance, psychotic disturbance, mood disturbance, and anxiety; H91.90 Unspecified hearing loss, unspecified ear; I48.91 Unspecified atrial fibrillation; I65.22 Occlusion and stenosis of left carotid artery; R29.810 Facial weakness; Z51.5 Encounter for palliative care; R06.81 Apnea, not elsewhere classified; Z66 Do not resuscitate; Z72.0 Tobacco use; Z82.49 Family history of ischemic heart disease and other diseases of the circulatory system
CPT/HCPCS: 36415; 70450; 70496; 70498; 71045; 80048; 80053; 80061; 81001; 82306; 82607; 82962; 83605; 84439; 84443; 84481; 84484; 85007; 85025; 85610; 85730; 87086; 87641; 93005; 93306; J2060; J2270; J7030; Q9967; 99285-25